=== PATIENT | male | born 1970 | race African-American/Black ===

== ENCOUNTER 2020-12-09 11:40 | Inpatient (IN) | payer SELFPAY ==
[~2020-12-09] VITALS: Ht 193 cm; Wt 141.8 kg
[2020-12-09] MEDS ORDERED: FUROSEMIDE 40 MG/4 ML VIAL IV ONE ×2 (12:00→16:15)
[2020-12-09 12:40] LABS: Basophils # (auto) 0.1 10 ^3/uL (0-0.2); Eosinophils # (auto) 0.1 10 ^3/uL (0-0.8); Eosinophils % (auto) 1.9 % (0.0-7.0); Hematocrit 30.8 % (41.0-53.0); Hemoglobin 10.3 g/dL (13.5-17.5); Lymphocytes % (auto) 25.6 % (10.0-50.0); Mean Corpuscular Hemoglobin 31.3 pg (28.0-32.0); Mean Corpuscular Hgb Conc. 33.5 g/dL (32.0-36.0); Mean Corpuscular Volume 93.5 fL (80.0-100.0); Monocytes # (auto) 0.8 10 ^3/uL (0-1.3); Monocytes % (auto) 10.7 % (0.0-12.0); Neutrophils # (auto) 4.6 10 ^3/uL (1.6-8.6); Neutrophils % (auto) 60.8 % (37.0-80.0); Nucleated Red Blood Cells % 0.1 %; Platelet Count (auto) 364 10^3/uL (140-450); Red Blood Cells 3.29 10^6/uL (4.5-5.90); Red Cell Distribution Width 13.4 % (11.8-14.3); White Blood Cell 7.6 10^3/uL (4.4-10.8)
[2020-12-09 12:58] LABS: Albumin 2.4 g/dL (3.4-5.0); Anion Gap 9 (5-15); Blood Urea Nitrogen 4 mg/dL (7-18); Calcium 8.4 mg/dL (8.5-10.1); Carbon Dioxide 23 mmol/L (21-32); Chloride 105 mmol/L (98-107); Glucose 110 mg/dL (74-106); Potassium 3.6 mmol/L (3.5-5.1); Sodium 137 mmol/L (136-145)
[2020-12-09 13:05] LABS: Alanine Aminotransferase 22 U/L (16-61); Alkaline Phosphatase 165 U/L (45-117); Aspartate Aminotransferase 48 U/L (15-37); BUN/Creatinine Ratio 6.6; Bilirubin, Total 2.7 mg/dL (0.2-1.0); GFR African American 181 mL/min; GFR Non-African American 149 mL/min
[2020-12-09 13:33] LABS: Urine Bacteria NONE SEEN /hpf (None Seen); Urine Blood Negative /uL (Negative); Urine Specific Gravity 1.011 (1.001-1.035); Urine WBC 1 /hpf (0 - 3)
[2020-12-09] MEDS ORDERED: IOHEXOL 350 MG/ML 100ML IJ ONE ×2 (13:43→14:37)
[2020-12-09] MEDS ORDERED: ALBUTEROL SULF 2.5 MG/0.5ML(0.5%) NEB SOLN NEB PRN (16:15)
[2020-12-09] MEDS ORDERED: ONDANSETRON HCL 4 MG/2 ML VIAL IV PRN (16:15)
[2020-12-09] MEDS ORDERED: DOCUSATE CALCIUM 240 MG CAP PO PRN (16:15)
[2020-12-09] MEDS ORDERED: NITROGLYCERIN 0.4 MG SL TAB SL PRN (16:15)
[2020-12-09] MEDS ORDERED: LORazepam 0.5 MG TAB PO PRN (16:15)
[2020-12-09] MEDS ORDERED: ACETAMINOPHEN 325 MG TAB PO PRN (16:15)
[2020-12-09] MEDS ORDERED: MORPHINE SULF INJ 2 MG/ML SYRINGE 1ML IV PRN ×2 (16:15)
[2020-12-09] MEDS ORDERED: LABETALOL HCL 5 MG/ML 4ML SYRINGE IV PRN (16:15)
[2020-12-09 19:36] VITALS: BP 138/77
[2020-12-09 21:00] VITALS: BP 123/72
[2020-12-09 22:00] VITALS: BP 123/72
[2020-12-10 05:00] VITALS: BP 127/79
[2020-12-10 06:48] LABS: Potassium 3.8 mmol/L (3.5-5.1)
[2020-12-10 07:12] LABS: Albumin 2.2 g/dL (3.4-5.0); BUN/Creatinine Ratio 9.7; Bilirubin, Total 2.1 mg/dL (0.2-1.0); Calcium 8.3 mg/dL (8.5-10.1); Total Protein 8.3 g/dL (6.4-8.2)
[2020-12-10 07:17] LABS: INR 1.46 (0.9-1.15)
[2020-12-10 09:00] VITALS: BP 139/84
[2020-12-10] MEDS: POTASSIUM CHL 20 Meq TABLET PO SCH (09:32)
[2020-12-10] MEDS: ENOXAPARIN SOD 40 MG/0.4 ML SYRINGE SC SCH (09:33)
[2020-12-10] MEDS: PANTOPRAZOLE 40 MG TAB PO SCH (09:33)
[2020-12-10 09:55] LABS: Basophils # (auto) 0.1 10 ^3/uL (0-0.2); Basophils % (auto) 0.8 % (0.0-2.0); Eosinophils # (auto) 0.1 10 ^3/uL (0-0.8); Eosinophils % (auto) 0.8 % (0.0-7.0); Hematocrit 46.3 % (41.0-53.0); Hemoglobin 15.6 g/dL (13.5-17.5); Lymphocytes # (auto) 1.7 10 ^3/uL (0.4-5.4); Lymphocytes % (auto) 20.4 % (10.0-50.0); Mean Corpuscular Hemoglobin 30.1 pg (28.0-32.0); Mean Corpuscular Hgb Conc. 33.7 g/dL (32.0-36.0); Mean Corpuscular Volume 89.5 fL (80.0-100.0); Monocytes # (auto) 0.3 10 ^3/uL (0-1.3); Monocytes % (auto) 3.3 % (0.0-12.0); Neutrophils # (auto) 6.1 10 ^3/uL (1.6-8.6); Neutrophils % (auto) 74.7 % (37.0-80.0); Nucleated Red Blood Cells % 0.1 %; Platelet Count (auto) 298 10^3/uL (140-450); Red Blood Cells 5.17 10^6/uL (4.5-5.90); Red Cell Distribution Width 13.5 % (11.8-14.3); White Blood Cell 8.1 10^3/uL (4.4-10.8)
[2020-12-10 13:00] VITALS: BP 137/74
[2020-12-10 17:00] VITALS: BP 143/76
[2020-12-10] MEDS: SPIRONOLACTONE 25 MG TAB PO SCH (18:08)
[2020-12-10] MEDS: FUROSEMIDE 20 MG TAB PO SCH (18:09)
[2020-12-10] MEDS: Glucerna Carbsteady SHAKE Vanilla 8oz PO SCH (18:40)
[2020-12-10] MEDS: LACTULOSE 20Gm/30ML SOLN PO SCH (22:03)
[2020-12-10 22:18] VITALS: BP 120/76
[2020-12-11 05:17] VITALS: BP 133/71
[2020-12-11 05:40] LABS: Basophils # (auto) 0.1 10 ^3/uL (0-0.2); Basophils % (auto) 0.7 % (0.0-2.0); Eosinophils # (auto) 0.2 10 ^3/uL (0-0.8); Eosinophils % (auto) 2.2 % (0.0-7.0); Hematocrit 29.5 % (41.0-53.0); Lymphocytes # (auto) 2.5 10 ^3/uL (0.4-5.4); Lymphocytes % (auto) 31.2 % (10.0-50.0); Mean Corpuscular Hemoglobin 31.7 pg (28.0-32.0); Mean Corpuscular Hgb Conc. 33.9 g/dL (32.0-36.0); Mean Corpuscular Volume 93.4 fL (80.0-100.0); Monocytes # (auto) 0.8 10 ^3/uL (0-1.3); Monocytes % (auto) 10.3 % (0.0-12.0); Neutrophils # (auto) 4.5 10 ^3/uL (1.6-8.6); Neutrophils % (auto) 55.6 % (37.0-80.0); Nucleated Red Blood Cells % 0.2 %; Platelet Count (auto) 336 10^3/uL (140-450); Red Blood Cells 3.16 10^6/uL (4.5-5.90); Red Cell Distribution Width 13.7 % (11.8-14.3)
[2020-12-11 06:02] LABS: Albumin 2.1 g/dL (3.4-5.0); Calcium 7.9 mg/dL (8.5-10.1); Potassium 4.2 mmol/L (3.5-5.1)
[2020-12-11 06:07] LABS: BUN/Creatinine Ratio 8.5; Bilirubin, Total 2.1 mg/dL (0.2-1.0)
[2020-12-11] MEDS: SPIRONOLACTONE 25 MG TAB PO SCH (06:13)
[2020-12-11] MEDS: FUROSEMIDE 20 MG TAB PO SCH (06:13)
[2020-12-11] MEDS: Glucerna Carbsteady SHAKE Vanilla 8oz PO SCH ×2 (08:23→12:00)
[2020-12-11 09:00] VITALS: BP 127/62
[2020-12-11] MEDS ORDERED: PHYTONADIONE(VitK) ORAL Susp 10mg/10ml(1mg/ml) PO SCH (10:00)
[2020-12-11] MEDS: LACTULOSE 20Gm/30ML SOLN PO SCH (10:10)
[2020-12-11] MEDS: POTASSIUM CHL 20 Meq TABLET PO SCH (10:11)
[2020-12-11] MEDS: PANTOPRAZOLE 40 MG TAB PO SCH (10:11)
[2020-12-11] MEDS: ENOXAPARIN SOD 40 MG/0.4 ML SYRINGE SC SCH (10:13)
[2020-12-11 11:39] LABS: INR 1.36 (0.9-1.15); Partial Thromboplastin Time 34.2 sec (23.0-31.2)
[2020-12-11] MEDS ORDERED: FOLIC ACID 1 MG, MULTIPLE VITAMIN 10 ML, MAGNESIUM SULF SDV 50% 8 MEQ, THIAMINE INJ 100... INJ SCH ×5 (12:00)
[2020-12-11 12:26] VITALS: BP 130/70
[2020-12-11 13:00] VITALS: BP 130/70
[2020-12-11 17:00] VITALS: BP 124/70
[2020-12-12 10:58] LABS: Hepatitis B Surface Antibody Negative
[2020-12-12 11:34] LABS: Hepatitis A Total Antibody Negative
[2020-12-12 12:11] LABS: Hepatitis B Core Total AB Positive; Hepatitis B Surface Antigen Negative (Negative); Hepatitis C Antibody Negative (Negative)
== END 2020-12-11 15:15 | disposition home or self-care (01) | DRG 433 ==
LOC: ER 11:40 → TELE 16:09 → TELE-EAST 21:00
PROVIDERS: ADMIT Family Medicine; ATTEND Family Medicine
DX: K74.60 Unspecified cirrhosis of liver (principal); D68.9 Coagulation defect, unspecified; E44.0 Moderate protein-calorie malnutrition; F10.231 Alcohol dependence with withdrawal delirium; J98.11 Atelectasis; K76.6 Portal hypertension; R18.8 Other ascites; I85.10 Secondary esophageal varices without bleeding; D63.8 Anemia in other chronic diseases classified elsewhere; E11.9 Type 2 diabetes mellitus without complications; I86.4 Gastric varices; R16.2 Hepatomegaly with splenomegaly, not elsewhere classified; F17.210 Nicotine dependence, cigarettes, uncomplicated; L02.828 Furuncle of other sites; I10 Essential (primary) hypertension; Z79.899 Other long term (current) drug therapy; Z83.3 Family history of diabetes mellitus; Z68.38 Body mass index [BMI] 38.0-38.9, adult; Z20.822 Contact with and (suspected) exposure to COVID-19
CPT/HCPCS: 36415; 71045; 71275; 76700; 80053; 81001; 82105; 82140; 82728; 83036; 83735; 83880; 84443; 84484; 85025; 85610; 85730; 86038; 86141; 86704; 86706; 86708; 86803; 87340; 87426; 93005; 96374; 96376; G0378

== ENCOUNTER 2022-03-09 15:18 | Inpatient (IN) | payer MEDICAID ==
[~2022-03-09] VITALS: Ht 193 cm; Wt 141.5 kg
[2022-03-09 16:17] LABS: Calcium 8.2 mg/dL (8.5-10.1); Potassium 4.5 mmol/L (3.5-5.1)
[2022-03-09 16:19] LABS: BUN/Creatinine Ratio 13.6
[2022-03-09 16:22] LABS: Bilirubin, Total 7.1 mg/dL (0.2-1.0); Total Protein 8.3 g/dL (6.4-8.2)
[2022-03-09 16:44] LABS: INR 1.83 (0.9-1.15); Partial Thromboplastin Time 35.3 sec (24.6-33.4)
[2022-03-09 18:58] LABS: Basophils # (auto) 0.1 10 ^3/uL (0-0.2); Basophils % (auto) 0.9 % (0.0-2.0); Eosinophils # (auto) 0.1 10 ^3/uL (0-0.8); Hematocrit 23.1 % (41.0-53.0); Lymphocytes # (auto) 1.4 10 ^3/uL (0.4-5.4); Lymphocytes % (auto) 19.3 % (10.0-50.0); Mean Corpuscular Hemoglobin 33.3 pg (28.0-32.0); Monocytes # (auto) 1.1 10 ^3/uL (0-1.3); Monocytes % (auto) 14.3 % (0.0-12.0); Neutrophils # (auto) 4.8 10 ^3/uL (1.6-8.6); Neutrophils % (auto) 64.5 % (37.0-80.0); Nucleated Red Blood Cells % 0.1 %; Red Blood Cells 2.28 10^6/uL (4.5-5.90); Red Cell Distribution Width 18.4 % (11.8-14.3); White Blood Cell 7.4 10^3/uL (4.4-10.8)
[2022-03-09 18:59] LABS: Hemoglobin 7.6 g/dL (13.5-17.5)
[2022-03-09] MEDS ORDERED: MORPHINE SULFATE INJ 2 MG/ml SYRG IV PRN (19:30)
[2022-03-09] MEDS ORDERED: NITROGLYCERIN 0.4 MG SL TAB SL PRN (19:30)
[2022-03-09] MEDS ORDERED: ONDANSETRON HCL 4 MG/2 ML VIAL IV PRN (19:30)
[2022-03-09] MEDS ORDERED: DEXTROSE (50%) 50ML SYRG IV PRN (19:45)
[2022-03-09] MEDS ORDERED: OCTREOTIDE ACETATE 100 MCG in SODIUM CHL 0.9% 50 ML IV ONE (19:45)
[2022-03-09] MEDS ORDERED: cefTRIAXone 1GM/50ML D5W 50 ML IV ONE (19:45)
[2022-03-09] MEDS ORDERED: PANTOPRAZOLE 40 MG/10 ML VIAL INJ IV ONE (19:45)
[2022-03-09] MEDS: OCTREOTIDE ACETATE 500 MCG in SODIUM CHL 0.9% 99 ML IV SCH (21:35)
[2022-03-09] MEDS: metroNIDAZOLE 500MG/100ML 100 ML IV SCH (22:25)
[2022-03-09] MEDS: PANTOPRAZOLE 40 MG/10 ML VIAL INJ IV SCH (22:25)
[2022-03-10] VITALS (12 sets, daily range): BP systolic 92–158; BP diastolic 39–67
[2022-03-10] MEDS: ACCU-CHEK COMFORT CURVE STRIP VI SCH ×4 (00:39→17:19)
[2022-03-10 00:43] LABS: Hematocrit 21.1 % (41.0-53.0); Hemoglobin 7.1 g/dL (13.5-17.5)
[2022-03-10 05:21] LABS: Basophils # (auto) 0.1 10 ^3/uL (0-0.2); Basophils % (auto) 0.7 % (0.0-2.0); Eosinophils # (auto) 0.1 10 ^3/uL (0-0.8); Red Blood Cells 1.96 10^6/uL (4.5-5.90)
[2022-03-10 05:28] LABS: Hematocrit 19.8 % (41.0-53.0); Lymphocytes # (auto) 1.1 10 ^3/uL (0.4-5.4); Lymphocytes % (auto) 15.2 % (10.0-50.0); Mean Corpuscular Hemoglobin 34.4 pg (28.0-32.0); Mean Corpuscular Hgb Conc. 34.1 g/dL (32.0-36.0); Mean Corpuscular Volume 100.9 fL (80.0-100.0); Monocytes % (auto) 13.5 % (0.0-12.0); Neutrophils # (auto) 5.2 10 ^3/uL (1.6-8.6); Neutrophils % (auto) 69.6 % (37.0-80.0); Nucleated Red Blood Cells % 0.1 %; Red Cell Distribution Width 18.5 % (11.8-14.3); White Blood Cell 7.5 10^3/uL (4.4-10.8)
[2022-03-10 05:35] LABS: Potassium 4.7 mmol/L (3.5-5.1)
[2022-03-10 05:38] LABS: BUN/Creatinine Ratio 14.3; Hemoglobin 6.7 g/dL (13.5-17.5)
[2022-03-10 05:41] LABS: Total Protein 7.8 g/dL (6.4-8.2)
[2022-03-10] MEDS: InsuLIN REG 1unit/0.01ml Soln (100units/ml) SC SCH ×4 (06:00→18:00)
[2022-03-10] MEDS: metroNIDAZOLE 500MG/100ML 100 ML IV SCH (06:05)
[2022-03-10] MEDS: OCTREOTIDE ACETATE 500 MCG in SODIUM CHL 0.9% 99 ML IV SCH ×2 (06:05→16:36)
[2022-03-10] MEDS: cefTRIAXone 1GM/50ML D5W 50 ML IV SCH (09:23)
[2022-03-10] MEDS: PANTOPRAZOLE 40 MG/10 ML VIAL INJ IV SCH ×2 (09:23→21:39)
[2022-03-10] MEDS: NICOTINE 14 MG/24HR TOPICAL PATCH TD SCH (09:23)
[2022-03-10] MEDS ORDERED: METOCLOPRAMIDE HCL 5MG/ml INJ 2ml VIAL IV PRN (11:45)
[2022-03-10 12:18] LABS: Hematocrit 22.4 % (41.0-53.0); Hemoglobin 7.6 g/dL (13.5-17.5)
[2022-03-10] MEDS ORDERED: phytonadione 10 MG in SODIUM CHL 0.9% 50 ML IV ONE (13:00)
[2022-03-10] MEDS: ALBUMIN 25% 50 ML IV SCH ×2 (13:35→21:38)
[2022-03-10] MEDS: BUMETANIDE 2.5mg/10ml (0.25 mg/ml) INJ IV SCH (17:54)
[2022-03-10 18:46] LABS: Hemoglobin 7.3 g/dL (13.5-17.5)
[2022-03-10 18:48] LABS: Hematocrit 21.6 % (41.0-53.0)
[2022-03-11] VITALS (18 sets, daily range): BP systolic 88–107; BP diastolic 41–65
[2022-03-11] MEDS: ACCU-CHEK COMFORT CURVE STRIP VI SCH ×4 (03:45→18:10)
[2022-03-11] MEDS: OCTREOTIDE ACETATE 500 MCG in SODIUM CHL 0.9% 99 ML IV SCH ×3 (03:45→21:16)
[2022-03-11] MEDS: ALBUMIN 25% 50 ML IV SCH (03:52)
[2022-03-11 04:57] LABS: Basophils # (auto) 0.1 10 ^3/uL (0-0.2); Eosinophils # (auto) 0.2 10 ^3/uL (0-0.8); Neutrophils % (auto) 64.5 % (37.0-80.0); Nucleated Red Blood Cells % 0.1 %
[2022-03-11 05:01] LABS: Eosinophils % (auto) 3.1 % (0.0-7.0); Hematocrit 19.7 % (41.0-53.0); Lymphocytes # (auto) 1.1 10 ^3/uL (0.4-5.4); Lymphocytes % (auto) 16.7 % (10.0-50.0); Mean Corpuscular Hemoglobin 34.1 pg (28.0-32.0); Mean Corpuscular Hgb Conc. 34.5 g/dL (32.0-36.0); Monocytes % (auto) 14.7 % (0.0-12.0); Neutrophils # (auto) 4.4 10 ^3/uL (1.6-8.6); Red Blood Cells 1.99 10^6/uL (4.5-5.90); Red Cell Distribution Width 18.1 % (11.8-14.3); White Blood Cell 6.9 10^3/uL (4.4-10.8)
[2022-03-11 05:05] LABS: Hemoglobin 6.8 g/dL (13.5-17.5)
[2022-03-11 05:11] LABS: INR 1.59 (0.9-1.15)
[2022-03-11 05:13] LABS: Potassium 4.5 mmol/L (3.5-5.1)
[2022-03-11 05:18] LABS: Albumin 2.4 g/dL (3.4-5.0); BUN/Creatinine Ratio 11.5; Calcium 8.2 mg/dL (8.5-10.1)
[2022-03-11 05:20] LABS: Bilirubin, Total 8.4 mg/dL (0.2-1.0); Total Protein 8.1 g/dL (6.4-8.2)
[2022-03-11] MEDS: InsuLIN REG 1unit/0.01ml Soln (100units/ml) SC SCH ×4 (06:00→18:00)
[2022-03-11] MEDS: BUMETANIDE 2.5mg/10ml (0.25 mg/ml) INJ IV SCH ×2 (06:08→18:16)
[2022-03-11] MEDS: cefTRIAXone 1GM/50ML D5W 50 ML IV SCH (08:30)
[2022-03-11] MEDS: NICOTINE 14 MG/24HR TOPICAL PATCH TD SCH (10:00)
[2022-03-11 11:14] LABS: Magnesium 2.1 mg/dL (1.6-2.6)
[2022-03-11] MEDS: PANTOPRAZOLE 40 MG/10 ML VIAL INJ IV SCH ×2 (12:06→22:12)
[2022-03-11] MEDS: MIDODRINE HCL 10 MG TAB PO SCH ×2 (12:06→18:16)
[2022-03-11] MEDS: DOPamine 1600MCG/ML D5W 250 ML IV SCH (13:23)
[2022-03-11] MEDS: SILDENAFIL CITRATE 20 MG TAB PO SCH ×2 (13:29→21:16)
[2022-03-12] MEDS: ACCU-CHEK COMFORT CURVE STRIP VI SCH ×4 (00:26→17:41)
[2022-03-12 04:55] LABS: Basophils # (auto) 0 10 ^3/uL (0-0.2); Basophils % (auto) 0.5 % (0.0-2.0); Eosinophils # (auto) 0.1 10 ^3/uL (0-0.8); Eosinophils % (auto) 1.3 % (0.0-7.0); Hematocrit 21.2 % (41.0-53.0); Hemoglobin 7.3 g/dL (13.5-17.5); Lymphocytes # (auto) 0.8 10 ^3/uL (0.4-5.4); Lymphocytes % (auto) 11.8 % (10.0-50.0); Mean Corpuscular Hemoglobin 33.6 pg (28.0-32.0); Mean Corpuscular Hgb Conc. 34.3 g/dL (32.0-36.0); Mean Corpuscular Volume 97.9 fL (80.0-100.0); Monocytes # (auto) 1.1 10 ^3/uL (0-1.3); Monocytes % (auto) 15.8 % (0.0-12.0); Neutrophils % (auto) 70.6 % (37.0-80.0); Nucleated Red Blood Cells % 0.2 %; Red Blood Cells 2.17 10^6/uL (4.5-5.90); Red Cell Distribution Width 19.9 % (11.8-14.3); White Blood Cell 7.1 10^3/uL (4.4-10.8)
[2022-03-12 05:00] VITALS: BP 89/39
[2022-03-12 05:14] LABS: BUN/Creatinine Ratio 9.2; Potassium 4.9 mmol/L (3.5-5.1)
[2022-03-12] MEDS: InsuLIN REG 1unit/0.01ml Soln (100units/ml) SC SCH ×4 (06:00→17:41)
[2022-03-12] MEDS: MIDODRINE HCL 10 MG TAB PO SCH ×3 (06:15→17:42)
[2022-03-12] MEDS: BUMETANIDE 2.5mg/10ml (0.25 mg/ml) INJ IV SCH ×2 (06:15→12:42)
[2022-03-12] MEDS: OCTREOTIDE ACETATE 500 MCG in SODIUM CHL 0.9% 99 ML IV SCH (07:45)
[2022-03-12] MEDS: DOPamine 1600MCG/ML D5W 250 ML IV SCH (08:07)
[2022-03-12] MEDS: SILDENAFIL CITRATE 20 MG TAB PO SCH ×3 (08:08→20:30)
[2022-03-12] MEDS: cefTRIAXone 1GM/50ML D5W 50 ML IV SCH (08:08)
[2022-03-12 08:20] VITALS: BP 93/43
[2022-03-12] MEDS: NICOTINE 14 MG/24HR TOPICAL PATCH TD SCH (11:04)
[2022-03-12] MEDS: PANTOPRAZOLE 40 MG/10 ML VIAL INJ IV SCH ×2 (11:04→21:09)
[2022-03-12 11:07] VITALS: BP 105/52
[2022-03-12 11:52] LABS: Amphetamine Screen, Urine NEGATIVE (NEGATIVE); Barbiturate Scree,Urine NEGATIVE (NEGATIVE); Benzodiazephine Screen, Urine NEGATIVE (NEGATIVE); Cocaine Screen, Urine NEGATIVE (NEGATIVE); Opiate Scree,Urine NEGATIVE (NEGATIVE)
[2022-03-12 12:00] LABS: Cannabinoid Screen, Urine POSITIVE (NEGATIVE); Phencyclidine Screen, Urine NEGATIVE (NEGATIVE)
[2022-03-12 12:01] LABS: Hepatitis C Antibody Negative (Negative)
[2022-03-12 12:15] LABS: Sodium Urine < 5 mmol/L (40-220)
[2022-03-12 12:28] LABS: Creatinine, Urine 534 mg/dL (30.0-125.0); Protein, Urine 247.4 mg/dL (0.0-11.9)
[2022-03-12 12:31] LABS: Urine Bacteria NONE SEEN /hpf (None Seen); Urine Blood 3+ /uL (Negative); Urine Hyaline Cast MANY /lpf (0 - 2); Urine Mucus FEW (None Seen); Urine Specific Gravity 1.026 (1.001-1.035); Urine WBC 95 /hpf (0 - 3)
[2022-03-12] MEDS: ALBUMIN 25% 100 ML IV SCH ×2 (12:42→20:30)
[2022-03-12 17:00] VITALS: BP 95/42
[2022-03-12] MEDS: SUCRALFATE 1 GM/10 ML ORAL SUSP GT SCH (17:42)
[2022-03-12 22:00] VITALS: BP 83/54
[2022-03-12 23:02] VITALS: BP 160/61
[2022-03-13] VITALS (10 sets, daily range): BP systolic 88–105; BP diastolic 51–66
[2022-03-13] MEDS: ACCU-CHEK COMFORT CURVE STRIP VI SCH ×5 (00:55→23:39)
[2022-03-13] MEDS: InsuLIN REG 1unit/0.01ml Soln (100units/ml) SC SCH ×5 (00:55→23:40)
[2022-03-13] MEDS: ALBUMIN 25% 100 ML IV SCH (04:46)
[2022-03-13 05:23] LABS: Basophils # (auto) 0 10 ^3/uL (0-0.2); Eosinophils # (auto) 0 10 ^3/uL (0-0.8); Eosinophils % (auto) 0.1 % (0.0-7.0); Lymphocytes # (auto) 0.3 10 ^3/uL (0.4-5.4); Monocytes # (auto) 0.3 10 ^3/uL (0-1.3); White Blood Cell 5.7 10^3/uL (4.4-10.8)
[2022-03-13 05:28] LABS: Basophils % (auto) 0.4 % (0.0-2.0); Hematocrit 20.3 % (41.0-53.0); Hemoglobin 7.1 g/dL (13.5-17.5); Lymphocytes % (auto) 6.1 % (10.0-50.0); Mean Corpuscular Hemoglobin 34.3 pg (28.0-32.0); Mean Corpuscular Hgb Conc. 34.7 g/dL (32.0-36.0); Mean Corpuscular Volume 98.8 fL (80.0-100.0); Monocytes % (auto) 5.8 % (0.0-12.0); Neutrophils % (auto) 87.6 % (37.0-80.0); Nucleated Red Blood Cells % 0.2 %; Red Blood Cells 2.06 10^6/uL (4.5-5.90); Red Cell Distribution Width 19.6 % (11.8-14.3)
[2022-03-13 05:42] LABS: Calcium 8.3 mg/dL (8.5-10.1); Potassium 5.4 mmol/L (3.5-5.1)
[2022-03-13] MEDS: DOPamine 1600MCG/ML D5W 250 ML IV SCH ×2 (05:42→12:00)
[2022-03-13 05:45] LABS: BUN/Creatinine Ratio 9.1
[2022-03-13] MEDS: MIDODRINE HCL 10 MG TAB PO SCH ×3 (06:13→17:32)
[2022-03-13] MEDS: SUCRALFATE 1 GM/10 ML ORAL SUSP GT SCH ×3 (06:14→17:31)
[2022-03-13] MEDS: SILDENAFIL CITRATE 20 MG TAB PO SCH ×3 (08:00→19:43)
[2022-03-13] MEDS: cefTRIAXone 1GM/50ML D5W 50 ML IV SCH (11:00)
[2022-03-13] MEDS: NICOTINE 14 MG/24HR TOPICAL PATCH TD SCH (11:00)
[2022-03-13] MEDS: PANTOPRAZOLE 40 MG/10 ML VIAL INJ IV SCH ×2 (11:00→22:10)
[2022-03-13] MEDS: BUMETANIDE 2.5mg/10ml (0.25 mg/ml) INJ IV SCH (11:00)
[2022-03-13] MEDS: SODIUM ZIRCONIUM CYCL 10 GM PAK PO SCH ×2 (14:15→22:10)
[2022-03-13] MEDS: SODIUM FERR GLUC 62.5MG/5ML 125 MG in SODIUM CHL 0.9% 100 ML IV SCH (17:29)
[2022-03-14] VITALS (9 sets, daily range): BP systolic 87–109; BP diastolic 37–68
[2022-03-14] MEDS: DOPamine 1600MCG/ML D5W 250 ML IV SCH ×2 (03:56→17:43)
[2022-03-14] MEDS: SODIUM ZIRCONIUM CYCL 10 GM PAK PO SCH ×3 (05:01→21:14)
[2022-03-14] MEDS: ACCU-CHEK COMFORT CURVE STRIP VI SCH ×4 (05:02→21:15)
[2022-03-14] MEDS: InsuLIN REG 1unit/0.01ml Soln (100units/ml) SC SCH ×4 (05:02→21:14)
[2022-03-14] MEDS: MIDODRINE HCL 10 MG TAB PO SCH ×3 (06:35→17:40)
[2022-03-14] MEDS: SUCRALFATE 1 GM/10 ML ORAL SUSP GT SCH ×3 (06:35→17:40)
[2022-03-14 08:37] LABS: Albumin 2.9 g/dL (3.4-5.0); Potassium 5.5 mmol/L (3.5-5.1)
[2022-03-14 08:40] LABS: BUN/Creatinine Ratio 8.7; Total Protein 8.7 g/dL (6.4-8.2)
[2022-03-14] MEDS: BUMETANIDE 2.5mg/10ml (0.25 mg/ml) INJ IV SCH (09:35)
[2022-03-14] MEDS: PANTOPRAZOLE 40 MG/10 ML VIAL INJ IV SCH ×2 (09:48→21:14)
[2022-03-14] MEDS: cefTRIAXone 1GM/50ML D5W 50 ML IV SCH (09:48)
[2022-03-14] MEDS: NICOTINE 14 MG/24HR TOPICAL PATCH TD SCH (09:48)
[2022-03-14] MEDS: SILDENAFIL CITRATE 20 MG TAB PO SCH ×3 (09:52→21:14)
[2022-03-14] MEDS ORDERED: diphenhdrAMINE HCL 50 MG/1 ML VL ONE (12:33)
[2022-03-14] MEDS ORDERED: LIDOCAINE VISCOUS 2% 15ML UD ONE (12:33)
[2022-03-14] MEDS ORDERED: MIDAZOLAM HCL 5 MG/ML-1ML VIAL ONE (12:33)
[2022-03-14] MEDS ORDERED: SODIUM CHLORIDE LOCK 10 ML ONE (12:33)
[2022-03-14] MEDS ORDERED: fentaNYL CITRATE 100 MCG/2 ML VL ONE (12:34)
[2022-03-14] MEDS: SODIUM FERR GLUC 62.5MG/5ML 125 MG in SODIUM CHL 0.9% 100 ML IV SCH (14:05)
[2022-03-14 17:24] LABS: INR 1.6 (0.9-1.15); Partial Thromboplastin Time 45.5 sec (24.6-33.4)
[2022-03-15 05:14] VITALS: BP 99/51
[2022-03-15] MEDS: SODIUM ZIRCONIUM CYCL 10 GM PAK PO SCH (05:54)
[2022-03-15] MEDS: MIDODRINE HCL 10 MG TAB PO SCH ×3 (05:55→18:30)
[2022-03-15] MEDS: SUCRALFATE 1 GM/10 ML ORAL SUSP GT SCH ×3 (05:55→18:30)
[2022-03-15] MEDS: InsuLIN REG 1unit/0.01ml Soln (100units/ml) SC SCH ×4 (05:55→23:53)
[2022-03-15] MEDS: ACCU-CHEK COMFORT CURVE STRIP VI SCH ×4 (05:55→23:52)
[2022-03-15] MEDS ORDERED: SODIUM CHL 0.9% 1000 ML BAG XX ONE (07:00)
[2022-03-15 07:05] LABS: Hemoglobin 7.5 g/dL (13.5-17.5)
[2022-03-15 07:20] LABS: Hematocrit 21.9 % (41.0-53.0); Red Blood Cells 2.24 10^6/uL (4.5-5.90); White Blood Cell 8.2 10^3/uL (4.4-10.8)
[2022-03-15 07:21] LABS: Mean Corpuscular Hemoglobin 33.5 pg (28.0-32.0); Mean Corpuscular Hgb Conc. 34.3 g/dL (32.0-36.0); Mean Corpuscular Volume 97.8 fL (80.0-100.0)
[2022-03-15 07:22] LABS: Basophils % (manual) 0 (0.0-2.0); Blast Cells 0; Eosinophils % (manual) 0 (0-7); INR 1.64 (0.9-1.15); Metamyelocytes % 0; Myelocytes % 0; Partial Thromboplastin Time 42.4 sec (24.6-33.4); Promyelocytes % 0; Reactive Lymphocytes 0
[2022-03-15 07:24] LABS: Calcium 7.8 mg/dL (8.5-10.1); Potassium 5.3 mmol/L (3.5-5.1)
[2022-03-15 07:26] LABS: BUN/Creatinine Ratio 9.3
[2022-03-15 07:32] LABS: Band Neutrophils % (manual) 1; Lymphocytes % (manual) 6 (10.0-50.0); Monocytes % (manual) 23 (0-12)
[2022-03-15] MEDS: DOPamine 1600MCG/ML D5W 250 ML IV SCH ×2 (07:59→19:11)
[2022-03-15 08:00] VITALS: BP 91/37
[2022-03-15] MEDS: cefTRIAXone 1GM/50ML D5W 50 ML IV SCH (08:44)
[2022-03-15] MEDS: SILDENAFIL CITRATE 20 MG TAB PO SCH ×3 (08:44→21:14)
[2022-03-15 09:07] VITALS: BP 91/37
[2022-03-15] MEDS: NICOTINE 14 MG/24HR TOPICAL PATCH TD SCH (10:00)
[2022-03-15] MEDS: PANTOPRAZOLE 40 MG/10 ML VIAL INJ IV SCH ×2 (10:18→21:18)
[2022-03-15] MEDS: BUMETANIDE 2.5mg/10ml (0.25 mg/ml) INJ IV SCH (10:18)
[2022-03-15] MEDS ORDERED: LIDOCAINE 2%HCL (LOCAL ANESTH.) INJ 10ml MDV ONE (11:46)
[2022-03-15] MEDS ORDERED: fentaNYL CITRATE 100 MCG/2 ML VL ONE (11:55)
[2022-03-15] MEDS ORDERED: HEPARIN SODIUM (PORCINE) 5000 UNITS/ML 1ML VIAL ONE (12:04)
[2022-03-15] MEDS: SODIUM FERR GLUC 62.5MG/5ML 125 MG in SODIUM CHL 0.9% 100 ML IV SCH (13:57)
[2022-03-15] MEDS ORDERED: ALBUMIN 25% 100 ML IV PRN (15:30)
[2022-03-15] MEDS ORDERED: DOPamine 1600MCG/ML D5W 250 ML IV SCH (15:45)
[2022-03-15 16:48] VITALS: BP 115/64
[2022-03-15 20:00] VITALS: BP 101/49
[2022-03-15] MEDS ORDERED: EPOETIN ALFA-EPBX 10,000 UNIT/1ML VIAL SC ONE (21:00)
[2022-03-15 22:00] VITALS: BP 59/33
[2022-03-16] VITALS (8 sets, daily range): BP systolic 74–114; BP diastolic 41–69
[2022-03-16] MEDS: ACCU-CHEK COMFORT CURVE STRIP VI SCH ×4 (05:58→23:55)
[2022-03-16] MEDS: InsuLIN REG 1unit/0.01ml Soln (100units/ml) SC SCH ×4 (05:59→23:57)
[2022-03-16] MEDS: MIDODRINE HCL 10 MG TAB PO SCH ×3 (06:03→17:48)
[2022-03-16] MEDS: SUCRALFATE 1 GM/10 ML ORAL SUSP GT SCH ×3 (06:07→17:48)
[2022-03-16 06:13] LABS: Calcium 8.1 mg/dL (8.5-10.1); Potassium 4.3 mmol/L (3.5-5.1)
[2022-03-16 06:15] LABS: BUN/Creatinine Ratio 8.5
[2022-03-16] MEDS: PANTOPRAZOLE 40 MG/10 ML VIAL INJ IV SCH (08:59)
[2022-03-16] MEDS: SILDENAFIL CITRATE 20 MG TAB PO SCH (08:59)
[2022-03-16] MEDS: NICOTINE 14 MG/24HR TOPICAL PATCH TD SCH (08:59)
[2022-03-16] MEDS: DOPamine 1600MCG/ML D5W 250 ML IV SCH (09:03)
[2022-03-16] MEDS: SODIUM FERR GLUC 62.5MG/5ML 125 MG in SODIUM CHL 0.9% 100 ML IV SCH (13:07)
[2022-03-16] MEDS ORDERED: SODIUM CHLORIDE 0.9% 500 ML IV ONE (15:30)
[2022-03-16] MEDS: PANTOPRAZOLE 40 MG TAB PO SCH (21:21)
[2022-03-17] MEDS: DOPamine 1600MCG/ML D5W 250 ML IV SCH ×2 (00:38→17:30)
[2022-03-17 05:00] VITALS: BP 96/55
[2022-03-17] MEDS: MIDODRINE HCL 10 MG TAB PO SCH ×3 (05:54→18:42)
[2022-03-17] MEDS: ACCU-CHEK COMFORT CURVE STRIP VI SCH ×4 (05:54→23:16)
[2022-03-17] MEDS: InsuLIN REG 1unit/0.01ml Soln (100units/ml) SC SCH ×4 (05:55→23:17)
[2022-03-17] MEDS: SUCRALFATE 1 GM/10 ML ORAL SUSP GT SCH ×3 (06:36→18:42)
[2022-03-17 06:45] LABS: Basophils # (auto) 0 10 ^3/uL (0-0.2); Eosinophils # (auto) 0.2 10 ^3/uL (0-0.8); Hemoglobin 7.7 g/dL (13.5-17.5); Monocytes # (auto) 1.5 10 ^3/uL (0-1.3); Nucleated Red Blood Cells % 0.1 %
[2022-03-17 06:48] LABS: Basophils % (auto) 0.7 % (0.0-2.0); Eosinophils % (auto) 2.9 % (0.0-7.0); Hematocrit 22.1 % (41.0-53.0); Lymphocytes # (auto) 0.7 10 ^3/uL (0.4-5.4); Lymphocytes % (auto) 10.7 % (10.0-50.0); Mean Corpuscular Hemoglobin 33.8 pg (28.0-32.0); Mean Corpuscular Hgb Conc. 34.8 g/dL (32.0-36.0); Mean Corpuscular Volume 97.1 fL (80.0-100.0); Neutrophils % (auto) 62.5 % (37.0-80.0); Red Blood Cells 2.28 10^6/uL (4.5-5.90); Red Cell Distribution Width 19.7 % (11.8-14.3); White Blood Cell 6.4 10^3/uL (4.4-10.8)
[2022-03-17 06:54] LABS: Monocytes % (auto) 23.2 % (0.0-12.0)
[2022-03-17 07:01] LABS: BUN/Creatinine Ratio 8.1; Calcium 8.4 mg/dL (8.5-10.1); Potassium 4.3 mmol/L (3.5-5.1)
[2022-03-17 09:39] VITALS: BP 99/56
[2022-03-17] MEDS: NICOTINE 14 MG/24HR TOPICAL PATCH TD SCH (11:19)
[2022-03-17] MEDS: PANTOPRAZOLE 40 MG TAB PO SCH ×2 (11:21→21:46)
[2022-03-17 13:27] VITALS: BP 102/60
[2022-03-17 16:58] VITALS: BP 105/66
[2022-03-17 22:00] VITALS: BP 106/58
[2022-03-18 05:00] VITALS: BP 110/66
[2022-03-18] MEDS: DOPamine 1600MCG/ML D5W 250 ML IV SCH ×2 (06:13→23:39)
[2022-03-18] MEDS: ACCU-CHEK COMFORT CURVE STRIP VI SCH ×4 (06:14→23:40)
[2022-03-18] MEDS: MIDODRINE HCL 10 MG TAB PO SCH ×3 (06:14→18:17)
[2022-03-18] MEDS: SUCRALFATE 1 GM/10 ML ORAL SUSP GT SCH ×3 (06:15→18:17)
[2022-03-18] MEDS: InsuLIN REG 1unit/0.01ml Soln (100units/ml) SC SCH ×4 (06:16→23:41)
[2022-03-18 09:00] VITALS: BP 104/65
[2022-03-18] MEDS: NICOTINE 14 MG/24HR TOPICAL PATCH TD SCH (10:00)
[2022-03-18] MEDS: PANTOPRAZOLE 40 MG TAB PO SCH ×2 (10:15→21:23)
[2022-03-18 13:00] VITALS: BP 99/61
[2022-03-18 17:00] VITALS: BP 96/54
[2022-03-18 23:14] VITALS: BP 115/65
[2022-03-19] MEDS: InsuLIN REG 1unit/0.01ml Soln (100units/ml) SC SCH ×3 (06:00→18:00)
[2022-03-19] MEDS: MIDODRINE HCL 10 MG TAB PO SCH ×2 (06:08→18:24)
[2022-03-19] MEDS: ACCU-CHEK COMFORT CURVE STRIP VI SCH ×3 (06:08→18:25)
[2022-03-19] MEDS: SUCRALFATE 1 GM/10 ML ORAL SUSP GT SCH ×3 (06:09→18:24)
[2022-03-19 06:14] VITALS: BP 105/65
[2022-03-19 09:00] VITALS: BP 114/52
[2022-03-19 09:22] LABS: Hemoglobin 7.7 g/dL (13.5-17.5)
[2022-03-19 09:25] LABS: Hematocrit 22.3 % (41.0-53.0); Mean Corpuscular Hemoglobin 33.6 pg (28.0-32.0); Mean Corpuscular Hgb Conc. 34.3 g/dL (32.0-36.0); Red Blood Cells 2.28 10^6/uL (4.5-5.90); Red Cell Distribution Width 19.5 % (11.8-14.3); White Blood Cell 8.4 10^3/uL (4.4-10.8)
[2022-03-19] MEDS: NICOTINE 14 MG/24HR TOPICAL PATCH TD SCH (09:25)
[2022-03-19] MEDS: PANTOPRAZOLE 40 MG TAB PO SCH ×2 (09:25→21:42)
[2022-03-19 09:27] LABS: Basophils % (manual) 0 (0.0-2.0); Blast Cells 0; Eosinophils % (manual) 0 (0-7); Metamyelocytes % 0; Promyelocytes % 0; Reactive Lymphocytes 0
[2022-03-19 09:38] LABS: BUN/Creatinine Ratio 8.3; Calcium 8.4 mg/dL (8.5-10.1); Potassium 4.1 mmol/L (3.5-5.1)
[2022-03-19 11:45] LABS: Band Neutrophils % (manual) 1; Lymphocytes % (manual) 9 (10.0-50.0); Monocytes % (manual) 22 (0-12); Myelocytes % 1
[2022-03-19 13:00] VITALS: BP 111/67
[2022-03-19 16:48] VITALS: BP 116/56
[2022-03-19] MEDS: DOPamine 1600MCG/ML D5W 250 ML IV SCH (17:10)
[2022-03-19 22:00] VITALS: BP 129/83
[2022-03-20] MEDS: DOPamine 1600MCG/ML D5W 250 ML IV SCH ×3 (01:17→21:37)
[2022-03-20 05:00] VITALS: BP 129/66
[2022-03-20] MEDS: InsuLIN REG 1unit/0.01ml Soln (100units/ml) SC SCH ×4 (06:00→19:49)
[2022-03-20] MEDS: MIDODRINE HCL 10 MG TAB PO SCH ×3 (06:03→17:30)
[2022-03-20] MEDS: SUCRALFATE 1 GM/10 ML ORAL SUSP GT SCH ×3 (06:04→17:30)
[2022-03-20] MEDS: ACCU-CHEK COMFORT CURVE STRIP VI SCH ×4 (06:04→19:48)
[2022-03-20 06:47] LABS: BUN/Creatinine Ratio 9.3; Calcium 9.1 mg/dL (8.5-10.1); Potassium 4.2 mmol/L (3.5-5.1)
[2022-03-20] MEDS ORDERED: SODIUM CHL 0.9% 1000 ML BAG XX ONE (07:00)
[2022-03-20 09:10] VITALS: BP 139/87
[2022-03-20] MEDS: PANTOPRAZOLE 40 MG TAB PO SCH ×2 (10:00→21:35)
[2022-03-20] MEDS: NICOTINE 14 MG/24HR TOPICAL PATCH TD SCH (10:00)
[2022-03-20 12:43] VITALS: BP 118/70
[2022-03-20] MEDS: LACTULOSE 20Gm/30ML SOLN PO SCH ×3 (16:18→21:35)
[2022-03-20 16:28] VITALS: BP 114/78
[2022-03-20] MEDS ORDERED: EPOETIN ALFA-EPBX 10,000 UNIT/1ML VIAL SC ONE (21:00)
[2022-03-20 22:00] VITALS: BP 107/69
[2022-03-21] MEDS: ACCU-CHEK COMFORT CURVE STRIP VI SCH ×4 (00:19→18:24)
[2022-03-21] MEDS: LACTULOSE 20Gm/30ML SOLN PO SCH ×6 (02:00→21:20)
[2022-03-21 05:00] VITALS: BP 105/62
[2022-03-21] MEDS: MIDODRINE HCL 10 MG TAB PO SCH ×3 (05:49→18:24)
[2022-03-21] MEDS: SUCRALFATE 1 GM/10 ML ORAL SUSP GT SCH ×3 (05:50→18:23)
[2022-03-21] MEDS: InsuLIN REG 1unit/0.01ml Soln (100units/ml) SC SCH ×4 (05:57→18:00)
[2022-03-21 06:33] LABS: BUN/Creatinine Ratio 9.5; Calcium 8.1 mg/dL (8.5-10.1); Potassium 3.8 mmol/L (3.5-5.1)
[2022-03-21 09:25] VITALS: BP 111/71
[2022-03-21] MEDS: NICOTINE 14 MG/24HR TOPICAL PATCH TD SCH (10:00)
[2022-03-21] MEDS: PANTOPRAZOLE 40 MG TAB PO SCH ×2 (10:40→21:20)
[2022-03-21 12:42] VITALS: BP 110/67
[2022-03-21 17:12] VITALS: BP 97/57
[2022-03-21] MEDS ORDERED: ALBUMIN 25% 50 ML IV ONE (20:15)
[2022-03-21] MEDS: DOPamine 1600MCG/ML D5W 250 ML IV SCH (21:22)
[2022-03-21 22:00] VITALS: BP 95/56
[2022-03-22] MEDS: ACCU-CHEK COMFORT CURVE STRIP VI SCH ×5 (01:04→23:44)
[2022-03-22] MEDS: LACTULOSE 20Gm/30ML SOLN PO SCH ×6 (01:36→21:29)
[2022-03-22 05:00] VITALS: BP 102/63
[2022-03-22] MEDS: MIDODRINE HCL 10 MG TAB PO SCH ×3 (05:05→18:03)
[2022-03-22] MEDS: InsuLIN REG 1unit/0.01ml Soln (100units/ml) SC SCH ×5 (05:06→23:45)
[2022-03-22 05:53] LABS: BUN/Creatinine Ratio 10.5; Calcium 8.9 mg/dL (8.5-10.1); Potassium 3.7 mmol/L (3.5-5.1)
[2022-03-22] MEDS: SUCRALFATE 1 GM/10 ML ORAL SUSP GT SCH ×3 (06:09→18:02)
[2022-03-22] MEDS ORDERED: SODIUM CHL 0.9% 1000 ML BAG XX ONE (07:00)
[2022-03-22 08:42] LABS: INR 1.7 (0.9-1.15); Partial Thromboplastin Time 58.7 sec (24.6-33.4)
[2022-03-22 09:18] VITALS: BP 113/67
[2022-03-22] MEDS ORDERED: MIDODRINE HCL 10 MG TAB PO ONE ×2 (09:45→10:00)
[2022-03-22] MEDS: NICOTINE 14 MG/24HR TOPICAL PATCH TD SCH (10:00)
[2022-03-22] MEDS: PANTOPRAZOLE 40 MG TAB PO SCH ×2 (10:00→21:29)
[2022-03-22] MEDS: DOPamine 1600MCG/ML D5W 250 ML IV SCH (12:09)
[2022-03-22 13:07] VITALS: BP 99/67
[2022-03-22 17:02] VITALS: BP 103/62
[2022-03-22] MEDS ORDERED: EPOETIN ALFA-EPBX 10,000 UNIT/1ML VIAL SC ONE (21:00)
[2022-03-22 22:00] VITALS: BP 95/56
[2022-03-23] MEDS: LACTULOSE 20Gm/30ML SOLN PO SCH ×6 (02:22→22:28)
[2022-03-23] MEDS: DOPamine 1600MCG/ML D5W 250 ML IV SCH ×2 (02:36→17:44)
[2022-03-23 05:00] VITALS: BP 95/59
[2022-03-23] MEDS: MIDODRINE HCL 10 MG TAB PO SCH ×3 (05:40→17:44)
[2022-03-23] MEDS: ACCU-CHEK COMFORT CURVE STRIP VI SCH ×4 (05:48→22:36)
[2022-03-23] MEDS: InsuLIN REG 1unit/0.01ml Soln (100units/ml) SC SCH ×5 (05:49→22:36)
[2022-03-23] MEDS: SUCRALFATE 1 GM/10 ML ORAL SUSP GT SCH ×3 (06:14→17:00)
[2022-03-23 09:00] VITALS: BP 105/65
[2022-03-23] MEDS: NICOTINE 14 MG/24HR TOPICAL PATCH TD SCH (10:00)
[2022-03-23] MEDS: PANTOPRAZOLE 40 MG TAB PO SCH ×2 (10:17→22:29)
[2022-03-23 12:59] LABS: Hemoglobin 7.7 g/dL (13.5-17.5); Red Blood Cells 2.35 10^6/uL (4.5-5.90)
[2022-03-23 13:00] VITALS: BP_SYST 104; BP_SYST 123; BP_DIAS 61; BP_DIAS 62
[2022-03-23 13:00] LABS: Hematocrit 23.2 % (41.0-53.0); Mean Corpuscular Hemoglobin 32.7 pg (28.0-32.0); Mean Corpuscular Volume 98.9 fL (80.0-100.0); White Blood Cell 8.8 10^3/uL (4.4-10.8)
[2022-03-23 13:06] LABS: BUN/Creatinine Ratio 9.8; Calcium 8.4 mg/dL (8.5-10.1); Potassium 3.9 mmol/L (3.5-5.1)
[2022-03-23 13:07] LABS: Basophils % (manual) 0 (0.0-2.0); Metamyelocytes % 0
[2022-03-23 13:08] LABS: Blast Cells 0; Myelocytes % 0; Promyelocytes % 0; Reactive Lymphocytes 0
[2022-03-23 13:26] LABS: Band Neutrophils % (manual) 2; Eosinophils % (manual) 3 (0-7); Lymphocytes % (manual) 18 (10.0-50.0); Monocytes % (manual) 11 (0-12)
[2022-03-23 17:00] VITALS: BP 103/64
[2022-03-23 18:39] LABS: Urine Bacteria FEW /hpf (None Seen); Urine Blood 3+ /uL (Negative); Urine Hyaline Cast FEW /lpf (0 - 2); Urine Mucus FEW (None Seen); Urine Specific Gravity 1.015 (1.001-1.035); Urine WBC 209 /hpf (0 - 3)
[2022-03-23 22:00] VITALS: BP 104/67
[2022-03-24] MEDS: LACTULOSE 20Gm/30ML SOLN PO SCH ×5 (02:11→22:30)
[2022-03-24 05:00] VITALS: BP 97/63
[2022-03-24] MEDS: InsuLIN REG 1unit/0.01ml Soln (100units/ml) SC SCH ×4 (06:00→22:48)
[2022-03-24] MEDS: SUCRALFATE 1 GM/10 ML ORAL SUSP GT SCH ×3 (06:14→17:00)
[2022-03-24] MEDS: ACCU-CHEK COMFORT CURVE STRIP VI SCH ×4 (06:14→22:48)
[2022-03-24] MEDS: MIDODRINE HCL 10 MG TAB PO SCH ×3 (06:14→18:17)
[2022-03-24 07:16] LABS: Basophils # (auto) 0.1 10 ^3/uL (0-0.2); Basophils % (auto) 1.1 % (0.0-2.0); Eosinophils # (auto) 0.1 10 ^3/uL (0-0.8); Hemoglobin 7.8 g/dL (13.5-17.5); Lymphocytes # (auto) 1.4 10 ^3/uL (0.4-5.4); Monocytes # (auto) 1.8 10 ^3/uL (0-1.3); Nucleated Red Blood Cells % 0.1 %
[2022-03-24 07:20] LABS: Eosinophils % (auto) 1.3 % (0.0-7.0); Hematocrit 23.1 % (41.0-53.0); Lymphocytes % (auto) 12.1 % (10.0-50.0); Mean Corpuscular Hemoglobin 33.1 pg (28.0-32.0); Mean Corpuscular Hgb Conc. 33.8 g/dL (32.0-36.0); Neutrophils # (auto) 7.8 10 ^3/uL (1.6-8.6); Neutrophils % (auto) 69.5 % (37.0-80.0); Red Blood Cells 2.36 10^6/uL (4.5-5.90); Red Cell Distribution Width 19.5 % (11.8-14.3); White Blood Cell 11.3 10^3/uL (4.4-10.8)
[2022-03-24 07:39] LABS: Potassium 3.8 mmol/L (3.5-5.1)
[2022-03-24 07:43] LABS: BUN/Creatinine Ratio 10.6; Calcium 8.6 mg/dL (8.5-10.1); Magnesium 2.1 mg/dL (1.6-2.6)
[2022-03-24 09:06] VITALS: BP 99/60
[2022-03-24] MEDS: DOPamine 1600MCG/ML D5W 250 ML IV SCH (09:20)
[2022-03-24] MEDS: NICOTINE 14 MG/24HR TOPICAL PATCH TD SCH (09:42)
[2022-03-24] MEDS: PANTOPRAZOLE 40 MG TAB PO SCH ×2 (09:42→22:30)
[2022-03-24 13:00] VITALS: BP 95/56
[2022-03-24 17:05] VITALS: BP 133/64
[2022-03-24 22:00] VITALS: BP 90/48
[2022-03-25] VITALS (7 sets, daily range): BP systolic 81–93; BP diastolic 42–58
[2022-03-25] MEDS: SUCRALFATE 1 GM/10 ML ORAL SUSP GT SCH ×3 (05:42→17:53)
[2022-03-25] MEDS: ACCU-CHEK COMFORT CURVE STRIP VI SCH ×3 (05:42→17:54)
[2022-03-25] MEDS: MIDODRINE HCL 10 MG TAB PO SCH ×3 (05:42→17:54)
[2022-03-25] MEDS: InsuLIN REG 1unit/0.01ml Soln (100units/ml) SC SCH ×3 (06:00→17:54)
[2022-03-25 08:40] LABS: Potassium 3.3 mmol/L (3.5-5.1)
[2022-03-25 08:46] LABS: BUN/Creatinine Ratio 11.8; Calcium 8.2 mg/dL (8.5-10.1)
[2022-03-25] MEDS: NICOTINE 14 MG/24HR TOPICAL PATCH TD SCH (10:00)
[2022-03-25] MEDS: LACTULOSE 20Gm/30ML SOLN PO SCH ×2 (10:00→21:36)
[2022-03-25] MEDS: PANTOPRAZOLE 40 MG TAB PO SCH ×2 (10:15→21:37)
[2022-03-25] MEDS ORDERED: POTASSIUM CHL 20 Meq TABLET PO ONE (14:15)
[2022-03-25 23:13] LABS: Basophils # (auto) 0.1 10 ^3/uL (0-0.2); Eosinophils # (auto) 0.2 10 ^3/uL (0-0.8); Lymphocytes # (auto) 1.3 10 ^3/uL (0.4-5.4); Monocytes # (auto) 1.8 10 ^3/uL (0-1.3); Neutrophils # (auto) 8.6 10 ^3/uL (1.6-8.6); Nucleated Red Blood Cells % 0.1 %
[2022-03-25 23:15] LABS: Basophils % (auto) 0.9 % (0.0-2.0); Eosinophils % (auto) 1.4 % (0.0-7.0); Hematocrit 20.4 % (41.0-53.0); Lymphocytes % (auto) 10.7 % (10.0-50.0); Mean Corpuscular Hgb Conc. 33.6 g/dL (32.0-36.0); Mean Corpuscular Volume 98.3 fL (80.0-100.0); Monocytes % (auto) 15.2 % (0.0-12.0); Neutrophils % (auto) 71.8 % (37.0-80.0); Red Blood Cells 2.07 10^6/uL (4.5-5.90); Red Cell Distribution Width 19.5 % (11.8-14.3)
[2022-03-25 23:33] LABS: Hemoglobin 6.8 g/dL (13.5-17.5)
[2022-03-26] VITALS (15 sets, daily range): BP systolic 83–123; BP diastolic 50–82
[2022-03-26] MEDS: ACCU-CHEK COMFORT CURVE STRIP VI SCH ×4 (00:19→18:00)
[2022-03-26] MEDS: InsuLIN REG 1unit/0.01ml Soln (100units/ml) SC SCH ×4 (06:00→18:00)
[2022-03-26] MEDS: SUCRALFATE 1 GM/10 ML ORAL SUSP GT SCH ×3 (06:22→18:00)
[2022-03-26] MEDS: MIDODRINE HCL 10 MG TAB PO SCH ×3 (06:22→18:00)
[2022-03-26] MEDS: NICOTINE 14 MG/24HR TOPICAL PATCH TD SCH (09:43)
[2022-03-26] MEDS: PANTOPRAZOLE 40 MG TAB PO SCH (09:43)
[2022-03-26] MEDS: LACTULOSE 20Gm/30ML SOLN PO SCH (09:43)
[2022-03-26 10:10] LABS: Basophils # (auto) 0.1 10 ^3/uL (0-0.2); Eosinophils # (auto) 0.1 10 ^3/uL (0-0.8); Eosinophils % (auto) 1.1 % (0.0-7.0); Hematocrit 20.4 % (41.0-53.0); Lymphocytes # (auto) 1.3 10 ^3/uL (0.4-5.4); Lymphocytes % (auto) 10.5 % (10.0-50.0); Mean Corpuscular Hemoglobin 32.3 pg (28.0-32.0); Mean Corpuscular Hgb Conc. 33.5 g/dL (32.0-36.0); Mean Corpuscular Volume 96.6 fL (80.0-100.0); Monocytes # (auto) 1.9 10 ^3/uL (0-1.3); Monocytes % (auto) 15.3 % (0.0-12.0); Neutrophils % (auto) 72.1 % (37.0-80.0); Nucleated Red Blood Cells % 0.1 %; Red Blood Cells 2.11 10^6/uL (4.5-5.90); Red Cell Distribution Width 20.4 % (11.8-14.3); White Blood Cell 12.4 10^3/uL (4.4-10.8)
[2022-03-26 10:15] LABS: Hemoglobin 6.8 g/dL (13.5-17.5)
[2022-03-26] MEDS ORDERED: DOPamine 1600MCG/ML D5W 250 ML IV SCH (11:30)
[2022-03-26] MEDS ORDERED: ALBUMIN 25% 100 ML IV SCH (11:30)
[2022-03-26] MEDS ORDERED: SUCR1SUS10 PO (11:41)
[2022-03-26] MEDS ORDERED: PANT40T PO (11:41)
[2022-03-26] MEDS ORDERED: MID10T PO (11:41)
[2022-03-26] MEDS ORDERED: LACT10SO3 PO (11:41)
== END 2022-03-26 19:50 | disposition home health service (06) | DRG 253 ==
LOC: ER 15:18 → EDBD 15:18 → OVERFLOW 19:35 → TELE-WESTW 23:33
PROVIDERS: ADMIT Registered Nurse; ATTEND Internal Medicine
PROC: 30233N1 Transfusion of Nonautologous Red Blood Cells into Peripheral Vein, Percutaneous Approach (ICD-10-PCS; 2022-03-10)
PROC: 30233K1 Transfusion of Nonautologous Frozen Plasma into Peripheral Vein, Percutaneous Approach (ICD-10-PCS; 2022-03-11)
PROC: 0W9G3ZZ Drainage of Peritoneal Cavity, Percutaneous Approach (ICD-10-PCS; 2022-03-11)
PROC: 5A1D70Z Performance of Urinary Filtration, Intermittent, Less than 6 Hours Per Day (ICD-10-PCS; 2022-03-15)
PROC: 02H633Z Insertion of Infusion Device into Right Atrium, Percutaneous Approach (ICD-10-PCS; 2022-03-15)
PROC: B548ZZA Ultrasonography of Superior Vena Cava, Guidance (ICD-10-PCS; 2022-03-15)
PROC: B5181ZA Fluoroscopy of Superior Vena Cava using Low Osmolar Contrast, Guidance (ICD-10-PCS; 2022-03-15)
PROC: 0JH63XZ Insertion of Tunneled Vascular Access Device into Chest Subcutaneous Tissue and Fascia, Percutaneous Approach (ICD-10-PCS; 2022-03-15)
PROC: 5A1D70Z Performance of Urinary Filtration, Intermittent, Less than 6 Hours Per Day (ICD-10-PCS; 2022-03-17)
PROC: 5A1D70Z Performance of Urinary Filtration, Intermittent, Less than 6 Hours Per Day (ICD-10-PCS; 2022-03-20)
PROC: 0W9G3ZZ Drainage of Peritoneal Cavity, Percutaneous Approach (ICD-10-PCS; principal; 2022-03-22)
PROC: 5A1D70Z Performance of Urinary Filtration, Intermittent, Less than 6 Hours Per Day (ICD-10-PCS; 2022-03-22)
DX: K92.2 Gastrointestinal hemorrhage, unspecified (principal); K76.7 Hepatorenal syndrome; N17.0 Acute kidney failure with tubular necrosis; I13.2 Hypertensive heart and chronic kidney disease with heart failure and with stage 5 chronic kidney disease, or end stage renal disease; D68.9 Coagulation defect, unspecified; E88.09 Other disorders of plasma-protein metabolism, not elsewhere classified; N18.6 End stage renal disease; D63.8 Anemia in other chronic diseases classified elsewhere; I27.20 Pulmonary hypertension, unspecified; Z20.822 Contact with and (suspected) exposure to COVID-19; K70.31 Alcoholic cirrhosis of liver with ascites; K72.90 Hepatic failure, unspecified without coma; D62 Acute posthemorrhagic anemia; K76.0 Fatty (change of) liver, not elsewhere classified; K80.20 Calculus of gallbladder without cholecystitis without obstruction; E11.22 Type 2 diabetes mellitus with diabetic chronic kidney disease; D69.59 Other secondary thrombocytopenia; E66.01 Morbid (severe) obesity due to excess calories; Z68.39 Body mass index [BMI] 39.0-39.9, adult; J98.11 Atelectasis; F10.10 Alcohol abuse, uncomplicated; E87.5 Hyperkalemia; N40.0 Benign prostatic hyperplasia without lower urinary tract symptoms; R31.0 Gross hematuria; Z79.4 Long term (current) use of insulin; Z79.899 Other long term (current) drug therapy; Z82.49 Family history of ischemic heart disease and other diseases of the circulatory system; Z83.3 Family history of diabetes mellitus; Z99.2 Dependence on renal dialysis; Z72.0 Tobacco use; I50.32 Chronic diastolic (congestive) heart failure
CPT/HCPCS: 36415; 71045; 74176; 76700; 76705; 76775; 76942; 80048; 80053; 80307; 81001; 82140; 82270; 82306; 82570; 82962; 83735; 83880; 83970; 84100; 84154; 84156; 84300; 84484; 85007; 85014; 85018; 85025; 85027; 85610; 85730; 86803; 86850; 86900; 86901; 86920; 87086; 87205; 87340; 89051; 90935; 93005; 93306; 93970; 94640; 96365; 96367; 96375; 97110; 97116; 97163; 97530; 99152; C9113; G0378; J0696; J1642; J1815; J2001; J2250; J2405; J3430; J3490; P9047

== ENCOUNTER 2022-04-02 10:17 | Inpatient (IN) | payer MEDICAID ==
[~2022-04-02] VITALS: Ht 188 cm; Wt 131.6 kg
[~2022-04-02 10:17] MED LIST: LACT10SO3 PO; MID10T PO; PANT40T PO; SUCR1SUS10 PO
[2022-04-02 11:31] LABS: Basophils # (auto) 0.1 10 ^3/uL (0-0.2); Basophils % (auto) 1.1 % (0.0-2.0); Eosinophils # (auto) 0.2 10 ^3/uL (0-0.8)
[2022-04-02 11:36] LABS: Eosinophils % (auto) 2.3 % (0.0-7.0); Hematocrit 24.1 % (41.0-53.0); Hemoglobin 8.1 g/dL (13.5-17.5); Mean Corpuscular Hemoglobin 32.7 pg (28.0-32.0); Mean Corpuscular Hgb Conc. 33.5 g/dL (32.0-36.0); Mean Corpuscular Volume 97.5 fL (80.0-100.0); Monocytes # (auto) 0.9 10 ^3/uL (0-1.3); Monocytes % (auto) 10.8 % (0.0-12.0); Neutrophils % (auto) 73.8 % (37.0-80.0); Red Blood Cells 2.47 10^6/uL (4.5-5.90); Red Cell Distribution Width 20.4 % (11.8-14.3); White Blood Cell 8.2 10^3/uL (4.4-10.8)
[2022-04-02 11:58] LABS: INR 1.56 (0.9-1.15); Partial Thromboplastin Time 42.5 sec (24.6-33.4)
[2022-04-02 12:00] LABS: Albumin 2.1 g/dL (3.4-5.0); Anion Gap 10 (5-15); Blood Alcohol < 3.0 mg/dL (0-5); Blood Urea Nitrogen 45 mg/dL (7-18); Calcium 8.5 mg/dL (8.5-10.1); Carbon Dioxide 24 mmol/L (21-32); Chloride 99 mmol/L (98-107); Glucose 127 mg/dL (74-106); Magnesium 2.4 mg/dL (1.6-2.6); Potassium 3.7 mmol/L (3.5-5.1); Sodium 133 mmol/L (136-145)
[2022-04-02 12:02] LABS: Alanine Aminotransferase 39 U/L (16-61); Alkaline Phosphatase 140 U/L (45-117); Aspartate Aminotransferase 50 U/L (15-37); BUN/Creatinine Ratio 7.6; Bilirubin, Total 9.4 mg/dL (0.2-1.0); GFR African American 13 mL/min; GFR Non-African American 11 mL/min; Total Protein 7.8 g/dL (6.4-8.2)
[2022-04-02] MEDS ORDERED: ALBUMIN 25% 50 ML IV PRN (13:00)
[2022-04-02] MEDS ORDERED: SODIUM CHL 0.9% 1000 ML BAG XX ONE (13:00)
[2022-04-02 13:13] LABS: % Iron Saturation 104.8 % (20-55)
[2022-04-02] MEDS ORDERED: B-COMPLEX W/ C & FOLIC ACID(NEPHROVITE TAB) PO ONE (14:00)
[2022-04-02] MEDS ORDERED: MORPHINE SULFATE INJ 2 MG/ml SYRG IV PRN (14:00)
[2022-04-02] MEDS ORDERED: cefTRIAXone 1GM/50ML D5W 50 ML IV ONE (14:00)
[2022-04-02] MEDS ORDERED: NITROGLYCERIN 0.4 MG SL TAB SL PRN (14:00)
[2022-04-02] MEDS ORDERED: FAMOTIDINE (10MG/ML) 2ML VL IV ONE (14:00)
[2022-04-02] MEDS: MIDODRINE HCL 10 MG TAB PO SCH (17:32)
[2022-04-02] MEDS: LACTULOSE 20Gm/30ML SOLN PO SCH (17:32)
[2022-04-02] MEDS ORDERED: EPOETIN ALFA-EPBX 10,000 UNIT/1ML VIAL SC ONE (21:00)
[2022-04-03] VITALS (7 sets, daily range): BP systolic 101–123; BP diastolic 54–70
[2022-04-03] MEDS: LACTULOSE 20Gm/30ML SOLN PO SCH ×4 (00:02→17:00)
[2022-04-03 03:45] LABS: Urine Bacteria NONE SEEN /hpf (None Seen); Urine Blood 2+ /uL (Negative); Urine Hyaline Cast MANY /lpf (0 - 2); Urine Mucus FEW (None Seen); Urine WBC 33 /hpf (0 - 3)
[2022-04-03 03:53] LABS: Alcohol, Urine < 3.0 mg/dL (0-10); Amphetamine Screen, Urine NEGATIVE (NEGATIVE); Barbiturate Scree,Urine NEGATIVE (NEGATIVE); Benzodiazephine Screen, Urine NEGATIVE (NEGATIVE); Cocaine Screen, Urine NEGATIVE (NEGATIVE); Opiate Scree,Urine NEGATIVE (NEGATIVE); Phencyclidine Screen, Urine NEGATIVE (NEGATIVE)
[2022-04-03 04:01] LABS: Cannabinoid Screen, Urine POSITIVE (NEGATIVE)
[2022-04-03 05:02] LABS: Hemoglobin 7.9 g/dL (13.5-17.5); Red Blood Cells 2.43 10^6/uL (4.5-5.90)
[2022-04-03 05:04] LABS: Hematocrit 23.8 % (41.0-53.0); Mean Corpuscular Hemoglobin 32.7 pg (28.0-32.0); Mean Corpuscular Hgb Conc. 33.4 g/dL (32.0-36.0); Mean Corpuscular Volume 97.8 fL (80.0-100.0); White Blood Cell 8.3 10^3/uL (4.4-10.8)
[2022-04-03 05:11] LABS: Red Cell Distribution Width 20.5 % (11.8-14.3)
[2022-04-03 05:26] LABS: Albumin 2.1 g/dL (3.4-5.0); Calcium 8.4 mg/dL (8.5-10.1); Potassium 3.6 mmol/L (3.5-5.1)
[2022-04-03 05:29] LABS: Basophils % (manual) 0 (0.0-2.0); Bilirubin, Total 10.2 mg/dL (0.2-1.0); Blast Cells 0; Metamyelocytes % 0; Myelocytes % 0; Promyelocytes % 0; Reactive Lymphocytes 0; Total Protein 7.7 g/dL (6.4-8.2)
[2022-04-03] MEDS: MIDODRINE HCL 10 MG TAB PO SCH ×3 (05:58→17:00)
[2022-04-03] MEDS ORDERED: SODIUM CHL 0.9% 1000 ML BAG XX ONE (06:45)
[2022-04-03] MEDS: ALBUMIN 25% 50 ML IV ONE (06:45)
[2022-04-03] MEDS: ALBUMIN 25% 100 ML IV SCH ×3 (07:00→08:10)
[2022-04-03] MEDS ORDERED: DOPamine 1600MCG/ML D5W 250 ML IV SCH (07:00)
[2022-04-03 07:07] LABS: Band Neutrophils % (manual) 7; Eosinophils % (manual) 2 (0-7); Lymphocytes % (manual) 16 (10.0-50.0); Monocytes % (manual) 6 (0-12)
[2022-04-03] MEDS: cefTRIAXone 1GM/50ML D5W 50 ML IV SCH (09:42)
[2022-04-03] MEDS: B-COMPLEX W/ C & FOLIC ACID(NEPHROVITE TAB) PO SCH (10:12)
[2022-04-03] MEDS: FAMOTIDINE (10MG/ML) 2ML VL IV SCH (10:12)
[2022-04-03] MEDS ORDERED: ALBUMIN 25% 100 ML IV ONE (15:00)
[2022-04-03] MEDS: NOREPINEPHRINE 8 MG/250ML KIT 250 ML IV SCH (15:17)
[2022-04-03] MEDS ORDERED: EPOETIN ALFA-EPBX 10,000 UNIT/1ML VIAL SC ONE (21:00)
[2022-04-04] VITALS (81 sets, daily range): BP systolic 84–121; BP diastolic 43–81
[2022-04-04 05:04] LABS: Albumin 2.7 g/dL (3.4-5.0); BUN/Creatinine Ratio 7.7; Calcium 8.5 mg/dL (8.5-10.1); Potassium 3.9 mmol/L (3.5-5.1)
[2022-04-04 05:07] LABS: Bilirubin, Total 10.9 mg/dL (0.2-1.0); Total Protein 7.5 g/dL (6.4-8.2)
[2022-04-04 05:11] LABS: Basophils # (auto) 0.1 10 ^3/uL (0-0.2); Eosinophils # (auto) 0.3 10 ^3/uL (0-0.8); Eosinophils % (auto) 2.7 % (0.0-7.0); Hematocrit 21.8 % (41.0-53.0); Hemoglobin 7.2 g/dL (13.5-17.5); Lymphocytes # (auto) 1.3 10 ^3/uL (0.4-5.4); Lymphocytes % (auto) 13.6 % (10.0-50.0); Mean Corpuscular Hemoglobin 33.1 pg (28.0-32.0); Mean Corpuscular Hgb Conc. 33.1 g/dL (32.0-36.0); Mean Corpuscular Volume 99.7 fL (80.0-100.0); Monocytes # (auto) 1.3 10 ^3/uL (0-1.3); Monocytes % (auto) 13.3 % (0.0-12.0); Neutrophils # (auto) 6.8 10 ^3/uL (1.6-8.6); Neutrophils % (auto) 69.4 % (37.0-80.0); Nucleated Red Blood Cells % 0.2 %; Red Blood Cells 2.19 10^6/uL (4.5-5.90); White Blood Cell 9.8 10^3/uL (4.4-10.8)
[2022-04-04 05:12] LABS: Red Cell Distribution Width 20.7 % (11.8-14.3)
[2022-04-04] MEDS: MIDODRINE HCL 10 MG TAB PO SCH ×3 (06:30→18:14)
[2022-04-04] MEDS: LACTULOSE 20Gm/30ML SOLN PO SCH ×4 (06:30→18:14)
[2022-04-04] MEDS: FAMOTIDINE (10MG/ML) 2ML VL IV SCH (10:06)
[2022-04-04] MEDS: cefTRIAXone 1GM/50ML D5W 50 ML IV SCH (10:06)
[2022-04-04] MEDS: B-COMPLEX W/ C & FOLIC ACID(NEPHROVITE TAB) PO SCH (10:06)
[2022-04-04] MEDS: NOREPINEPHRINE 8 MG/250ML KIT 250 ML IV SCH (10:15)
[2022-04-04 10:16] LABS: INR 1.67 (0.9-1.15); Partial Thromboplastin Time 47.2 sec (24.6-33.4)
[2022-04-04] MEDS ORDERED: EPOETIN ALFA-EPBX 10,000 UNIT/1ML VIAL IV ONE (10:45)
[2022-04-04] MEDS: ALBUMIN 25% 50 ML IV SCH ×2 (14:35→22:30)
[2022-04-04] MEDS ORDERED: EPOETIN ALFA-EPBX 10,000 UNIT/1ML VIAL SC ONE (21:00)
[2022-04-05] VITALS (97 sets, daily range): BP systolic 82–123; BP diastolic 42–78
[2022-04-05] MEDS: LACTULOSE 20Gm/30ML SOLN PO SCH ×4 (00:30→18:18)
[2022-04-05 04:52] LABS: Basophils # (auto) 0.1 10 ^3/uL (0-0.2); Eosinophils # (auto) 0.2 10 ^3/uL (0-0.8); Nucleated Red Blood Cells % 0.1 %
[2022-04-05 05:03] LABS: Calcium 8.6 mg/dL (8.5-10.1); Magnesium 2.2 mg/dL (1.6-2.6); Potassium 3.8 mmol/L (3.5-5.1)
[2022-04-05 05:11] LABS: Eosinophils % (auto) 2.7 % (0.0-7.0); Lymphocytes # (auto) 1.4 10 ^3/uL (0.4-5.4); Lymphocytes % (auto) 15.1 % (10.0-50.0); Mean Corpuscular Hgb Conc. 33.4 g/dL (32.0-36.0); Monocytes # (auto) 1.2 10 ^3/uL (0-1.3); Monocytes % (auto) 13.3 % (0.0-12.0); Neutrophils # (auto) 6.1 10 ^3/uL (1.6-8.6); Neutrophils % (auto) 67.9 % (37.0-80.0); Red Blood Cells 2.02 10^6/uL (4.5-5.90)
[2022-04-05 05:12] LABS: Red Cell Distribution Width 21.2 % (11.8-14.3)
[2022-04-05 05:13] LABS: Hemoglobin 6.7 g/dL (13.5-17.5)
[2022-04-05] MEDS: MIDODRINE HCL 10 MG TAB PO SCH ×3 (06:00→18:19)
[2022-04-05] MEDS: ALBUMIN 25% 50 ML IV SCH (06:30)
[2022-04-05] MEDS: NOREPINEPHRINE BITARTRATE 32 MG in SODIUM CHL 0.9% 218 ML IV SCH ×2 (07:00→20:00)
[2022-04-05] MEDS: B-COMPLEX W/ C & FOLIC ACID(NEPHROVITE TAB) PO SCH (10:34)
[2022-04-05] MEDS: FAMOTIDINE (10MG/ML) 2ML VL IV SCH (10:34)
[2022-04-05] MEDS: cefTRIAXone 1GM/50ML D5W 50 ML IV SCH (10:35)
[2022-04-05] MEDS ORDERED: PANTOPRAZOLE 40 MG TAB PO SCH (14:15)
[2022-04-05] MEDS: SUCRALFATE 1 GM/10 ML ORAL SUSP GT SCH ×2 (18:18→22:13)
[2022-04-05] MEDS ORDERED: FUROSEMIDE 20 MG/2 ML VIAL IV ONE (21:30)
[2022-04-05] MEDS: PANTOPRAZOLE 40 MG TAB PO SCH (22:13)
[2022-04-05] MEDS: rifAXIMin 550 MG TAB PO SCH (22:13)
[2022-04-06] VITALS (99 sets, daily range): BP systolic 87–125; BP diastolic 52–80
[2022-04-06] MEDS: LACTULOSE 20Gm/30ML SOLN PO SCH ×4 (00:22→19:00)
[2022-04-06 05:08] LABS: Hematocrit 21.3 % (41.0-53.0); Hemoglobin 7.2 g/dL (13.5-17.5); Mean Corpuscular Hemoglobin 33.2 pg (28.0-32.0); Mean Corpuscular Hgb Conc. 33.6 g/dL (32.0-36.0); Red Blood Cells 2.16 10^6/uL (4.5-5.90); White Blood Cell 9.5 10^3/uL (4.4-10.8)
[2022-04-06 05:12] LABS: Band Neutrophils % (manual) 0; Basophils % (manual) 0 (0.0-2.0); Blast Cells 0; Metamyelocytes % 0; Myelocytes % 0; Promyelocytes % 0; Reactive Lymphocytes 0
[2022-04-06 05:19] LABS: BUN/Creatinine Ratio 7.9; Calcium 8.8 mg/dL (8.5-10.1)
[2022-04-06] MEDS: MIDODRINE HCL 10 MG TAB PO SCH ×3 (06:04→19:00)
[2022-04-06] MEDS: SUCRALFATE 1 GM/10 ML ORAL SUSP GT SCH ×4 (06:04→23:05)
[2022-04-06 06:50] LABS: Eosinophils % (manual) 1 (0-7); Lymphocytes % (manual) 14 (10.0-50.0); Monocytes % (manual) 10 (0-12)
[2022-04-06] MEDS ORDERED: SODIUM CHL 0.9% 1000 ML BAG XX ONE (07:00)
[2022-04-06] MEDS: B-COMPLEX W/ C & FOLIC ACID(NEPHROVITE TAB) PO SCH (10:39)
[2022-04-06] MEDS: PANTOPRAZOLE 40 MG TAB PO SCH ×2 (10:40→23:10)
[2022-04-06] MEDS: cefTRIAXone 1GM/50ML D5W 50 ML IV SCH (10:41)
[2022-04-06] MEDS: ALBUMIN 25% 100 ML IV SCH ×2 (10:42→13:02)
[2022-04-06] MEDS: rifAXIMin 550 MG TAB PO SCH ×2 (10:46→23:05)
[2022-04-06] MEDS: OCTREOTIDE ACETATE 100 MCG/ML VL SUBCUT SCH ×2 (16:46→23:09)
[2022-04-06] MEDS ORDERED: EPOETIN ALFA-EPBX 10,000 UNIT/1ML VIAL SC ONE (21:00)
[2022-04-07] VITALS (87 sets, daily range): BP systolic 78–132; BP diastolic 34–79
[2022-04-07] MEDS: LACTULOSE 20Gm/30ML SOLN PO SCH ×5 (00:03→23:55)
[2022-04-07 05:17] LABS: Basophils # (auto) 0.1 10 ^3/uL (0-0.2); Eosinophils # (auto) 0.2 10 ^3/uL (0-0.8); Lymphocytes # (auto) 0.9 10 ^3/uL (0.4-5.4)
[2022-04-07 05:18] LABS: Basophils % (auto) 1.6 % (0.0-2.0); Eosinophils % (auto) 2.3 % (0.0-7.0); Hematocrit 20.1 % (41.0-53.0); Lymphocytes % (auto) 11.4 % (10.0-50.0); Mean Corpuscular Hemoglobin 34.4 pg (28.0-32.0); Mean Corpuscular Hgb Conc. 34.2 g/dL (32.0-36.0); Mean Corpuscular Volume 100.7 fL (80.0-100.0); Monocytes # (auto) 1.3 10 ^3/uL (0-1.3); Monocytes % (auto) 17.3 % (0.0-12.0); Neutrophils # (auto) 5.1 10 ^3/uL (1.6-8.6); Neutrophils % (auto) 67.4 % (37.0-80.0); Nucleated Red Blood Cells % 0.1 %; White Blood Cell 7.6 10^3/uL (4.4-10.8)
[2022-04-07 05:22] LABS: Hemoglobin 6.9 g/dL (13.5-17.5); Red Cell Distribution Width 21.2 % (11.8-14.3)
[2022-04-07 05:33] LABS: INR 1.67 (0.9-1.15)
[2022-04-07] MEDS: MIDODRINE HCL 10 MG TAB PO SCH ×3 (05:38→18:26)
[2022-04-07] MEDS: OCTREOTIDE ACETATE 100 MCG/ML VL SUBCUT SCH ×3 (05:39→22:44)
[2022-04-07] MEDS ORDERED: FUROSEMIDE 20 MG/2 ML VIAL IV ONE (06:30)
[2022-04-07] MEDS: SUCRALFATE 1 GM/10 ML ORAL SUSP GT SCH ×4 (06:50→22:44)
[2022-04-07 07:30] LABS: BUN/Creatinine Ratio 7.3; Calcium 8.7 mg/dL (8.5-10.1); Potassium 3.9 mmol/L (3.5-5.1)
[2022-04-07] MEDS: NOREPINEPHRINE BITARTRATE 32 MG in SODIUM CHL 0.9% 218 ML IV SCH (07:34)
[2022-04-07] MEDS: B-COMPLEX W/ C & FOLIC ACID(NEPHROVITE TAB) PO SCH (08:47)
[2022-04-07] MEDS: cefTRIAXone 1GM/50ML D5W 50 ML IV SCH (08:47)
[2022-04-07] MEDS: PANTOPRAZOLE 40 MG TAB PO SCH ×2 (08:47→22:45)
[2022-04-07] MEDS: rifAXIMin 550 MG TAB PO SCH ×2 (08:48→22:45)
[2022-04-07 14:45] LABS: Hematocrit 23.5 % (41.0-53.0); Hemoglobin 7.6 g/dL (13.5-17.5)
[2022-04-08] VITALS (46 sets, daily range): BP systolic 88–120; BP diastolic 33–73
[2022-04-08] MEDS: LACTULOSE 20Gm/30ML SOLN PO SCH ×3 (05:40→17:42)
[2022-04-08] MEDS: OCTREOTIDE ACETATE 100 MCG/ML VL SUBCUT SCH ×3 (05:40→22:33)
[2022-04-08] MEDS: NOREPINEPHRINE BITARTRATE 32 MG in SODIUM CHL 0.9% 218 ML IV SCH (05:41)
[2022-04-08] MEDS: MIDODRINE HCL 10 MG TAB PO SCH ×3 (05:41→17:42)
[2022-04-08] MEDS: SUCRALFATE 1 GM/10 ML ORAL SUSP GT SCH ×4 (05:41→22:31)
[2022-04-08 06:03] LABS: BUN/Creatinine Ratio 7.7; Calcium 8.3 mg/dL (8.5-10.1); Potassium 3.6 mmol/L (3.5-5.1)
[2022-04-08 06:26] LABS: Hematocrit 23.1 % (41.0-53.0); Mean Corpuscular Hemoglobin 34.7 pg (28.0-32.0); Mean Corpuscular Hgb Conc. 34.6 g/dL (32.0-36.0); Mean Corpuscular Volume 100.4 fL (80.0-100.0); Red Blood Cells 2.31 10^6/uL (4.5-5.90); White Blood Cell 7.6 10^3/uL (4.4-10.8)
[2022-04-08 06:34] LABS: Red Cell Distribution Width 20.1 % (11.8-14.3)
[2022-04-08 06:36] LABS: Band Neutrophils % (manual) 0; Basophils % (manual) 0 (0.0-2.0); Blast Cells 0; Promyelocytes % 0; Reactive Lymphocytes 0
[2022-04-08 06:50] LABS: Eosinophils % (manual) 1 (0-7); Lymphocytes % (manual) 11 (10.0-50.0); Metamyelocytes % 1; Monocytes % (manual) 9 (0-12); Myelocytes % 1
[2022-04-08] MEDS: cefTRIAXone 1GM/50ML D5W 50 ML IV SCH (08:02)
[2022-04-08] MEDS: PANTOPRAZOLE 40 MG TAB PO SCH ×2 (09:15→22:32)
[2022-04-08] MEDS: B-COMPLEX W/ C & FOLIC ACID(NEPHROVITE TAB) PO SCH (09:15)
[2022-04-08] MEDS: rifAXIMin 550 MG TAB PO SCH ×2 (09:15→22:31)
[2022-04-08 22:51] LABS: BUN/Creatinine Ratio 8.1; Calcium 8.1 mg/dL (8.5-10.1); Magnesium 2.3 mg/dL (1.6-2.6); Potassium 3.5 mmol/L (3.5-5.1)
[2022-04-09] VITALS (41 sets, daily range): BP systolic 96–139; BP diastolic 49–72
[2022-04-09] MEDS: LACTULOSE 20Gm/30ML SOLN PO SCH ×4 (06:00→18:36)
[2022-04-09] MEDS: MIDODRINE HCL 10 MG TAB PO SCH ×3 (06:25→18:36)
[2022-04-09] MEDS: SUCRALFATE 1 GM/10 ML ORAL SUSP GT SCH ×4 (06:25→22:27)
[2022-04-09] MEDS: OCTREOTIDE ACETATE 100 MCG/ML VL SUBCUT SCH ×3 (06:29→22:26)
[2022-04-09] MEDS ORDERED: SODIUM CHL 0.9% 1000 ML BAG XX ONE (07:00)
[2022-04-09] MEDS: NOREPINEPHRINE BITARTRATE 32 MG in SODIUM CHL 0.9% 218 ML IV SCH (07:00)
[2022-04-09] MEDS: cefTRIAXone 1GM/50ML D5W 50 ML IV SCH (08:00)
[2022-04-09] MEDS: B-COMPLEX W/ C & FOLIC ACID(NEPHROVITE TAB) PO SCH (08:44)
[2022-04-09] MEDS: PANTOPRAZOLE 40 MG TAB PO SCH ×2 (08:44→22:28)
[2022-04-09] MEDS: ALBUMIN 25% 100 ML IV SCH ×2 (10:40→12:00)
[2022-04-09] MEDS: rifAXIMin 550 MG TAB PO SCH ×2 (14:26→22:27)
[2022-04-09 18:26] LABS: Hematocrit 22.6 % (41.0-53.0); Hemoglobin 7.3 g/dL (13.5-17.5); Mean Corpuscular Hemoglobin 32.6 pg (28.0-32.0); Mean Corpuscular Hgb Conc. 32.2 g/dL (32.0-36.0); Mean Corpuscular Volume 101.5 fL (80.0-100.0); Red Blood Cells 2.23 10^6/uL (4.5-5.90); White Blood Cell 7.6 10^3/uL (4.4-10.8)
[2022-04-09 18:36] LABS: Basophils % (manual) 0 (0.0-2.0); Blast Cells 0; Eosinophils % (manual) 0 (0-7); Metamyelocytes % 0; Myelocytes % 0; Promyelocytes % 0; Reactive Lymphocytes 0
[2022-04-09 19:41] LABS: Band Neutrophils % (manual) 4; Lymphocytes % (manual) 18 (10.0-50.0); Monocytes % (manual) 9 (0-12)
[2022-04-09] MEDS ORDERED: EPOETIN ALFA-EPBX 10,000 UNIT/1ML VIAL SC ONE (21:00)
[2022-04-10] VITALS (7 sets, daily range): BP systolic 90–105; BP diastolic 45–64
[2022-04-10] MEDS: LACTULOSE 20Gm/30ML SOLN PO SCH ×4 (00:05→18:00)
[2022-04-10 04:59] LABS: Mean Corpuscular Hemoglobin 34.3 pg (28.0-32.0); Mean Corpuscular Hgb Conc. 33.6 g/dL (32.0-36.0)
[2022-04-10 05:02] LABS: Hematocrit 23.3 % (41.0-53.0); Hemoglobin 7.8 g/dL (13.5-17.5); Red Blood Cells 2.28 10^6/uL (4.5-5.90); White Blood Cell 7.2 10^3/uL (4.4-10.8)
[2022-04-10 05:10] LABS: Basophils % (manual) 0 (0.0-2.0); Blast Cells 0; Metamyelocytes % 0; Myelocytes % 0; Promyelocytes % 0; Reactive Lymphocytes 0; Red Cell Distribution Width 20.3 % (11.8-14.3)
[2022-04-10 05:15] LABS: BUN/Creatinine Ratio 7.2; Calcium 8.1 mg/dL (8.5-10.1); Potassium 3.4 mmol/L (3.5-5.1)
[2022-04-10] MEDS: SUCRALFATE 1 GM/10 ML ORAL SUSP GT SCH ×3 (06:29→17:00)
[2022-04-10] MEDS: MIDODRINE HCL 10 MG TAB PO SCH ×3 (06:29→18:00)
[2022-04-10] MEDS: OCTREOTIDE ACETATE 100 MCG/ML VL SUBCUT SCH ×2 (06:29→14:00)
[2022-04-10 06:58] LABS: Band Neutrophils % (manual) 2; Eosinophils % (manual) 2 (0-7); Lymphocytes % (manual) 19 (10.0-50.0); Monocytes % (manual) 13 (0-12)
[2022-04-10] MEDS ORDERED: POTASSIUM CHL 20 Meq TABLET PO ONE (10:15)
[2022-04-10] MEDS: cefTRIAXone 1GM/50ML D5W 50 ML IV SCH (10:27)
[2022-04-10] MEDS: B-COMPLEX W/ C & FOLIC ACID(NEPHROVITE TAB) PO SCH (10:27)
[2022-04-10] MEDS: PANTOPRAZOLE 40 MG TAB PO SCH (10:27)
[2022-04-10] MEDS: rifAXIMin 550 MG TAB PO SCH (10:44)
[2022-04-10] MEDS ORDERED: POTASSIUM EFFERVESENT TAB 25 MEQ PO ONE (12:15)
[2022-04-11] MEDS ORDERED: SODIUM CHL 0.9% 1000 ML BAG XX ONE (07:00)
[2022-04-11] MEDS ORDERED: EPOETIN ALFA-EPBX 10,000 UNIT/1ML VIAL SC ONE (21:00)
== END 2022-04-10 18:40 | disposition home or self-care (01) | DRG 279 ==
LOC: ER 10:17 → EDBD 10:17 → TELE 14:08 → ICU CENTRL 04-03 22:15 → DOU IN ICU 04-08 16:40
PROVIDERS: ADMIT Internal Medicine; ATTEND Internal Medicine
PROC: 5A1D70Z Performance of Urinary Filtration, Intermittent, Less than 6 Hours Per Day (ICD-10-PCS; 2022-04-02)
PROC: 5A1D70Z Performance of Urinary Filtration, Intermittent, Less than 6 Hours Per Day (ICD-10-PCS; 2022-04-03)
PROC: 30233R1 Transfusion of Nonautologous Platelets into Peripheral Vein, Percutaneous Approach (ICD-10-PCS; principal; 2022-04-04)
PROC: 5A1D70Z Performance of Urinary Filtration, Intermittent, Less than 6 Hours Per Day (ICD-10-PCS; 2022-04-04)
PROC: 30233N1 Transfusion of Nonautologous Red Blood Cells into Peripheral Vein, Percutaneous Approach (ICD-10-PCS; 2022-04-05)
PROC: 0W9G3ZZ Drainage of Peritoneal Cavity, Percutaneous Approach (ICD-10-PCS; 2022-04-06)
PROC: 5A1D70Z Performance of Urinary Filtration, Intermittent, Less than 6 Hours Per Day (ICD-10-PCS; 2022-04-06)
PROC: 5A1D70Z Performance of Urinary Filtration, Intermittent, Less than 6 Hours Per Day (ICD-10-PCS; 2022-04-09)
DX: K72.90 Hepatic failure, unspecified without coma (principal); N17.0 Acute kidney failure with tubular necrosis; K76.7 Hepatorenal syndrome; I50.33 Acute on chronic diastolic (congestive) heart failure; G93.41 Metabolic encephalopathy; D68.4 Acquired coagulation factor deficiency; D63.1 Anemia in chronic kidney disease; E88.09 Other disorders of plasma-protein metabolism, not elsewhere classified; N18.6 End stage renal disease; Z20.822 Contact with and (suspected) exposure to COVID-19; I27.20 Pulmonary hypertension, unspecified; D69.59 Other secondary thrombocytopenia; E11.22 Type 2 diabetes mellitus with diabetic chronic kidney disease; F10.10 Alcohol abuse, uncomplicated; K70.31 Alcoholic cirrhosis of liver with ascites; K80.20 Calculus of gallbladder without cholecystitis without obstruction; E66.9 Obesity, unspecified; E86.1 Hypovolemia; Z68.39 Body mass index [BMI] 39.0-39.9, adult; D50.9 Iron deficiency anemia, unspecified; K62.5 Hemorrhage of anus and rectum; Z72.0 Tobacco use; Z71.6 Tobacco abuse counseling
CPT/HCPCS: 36415; 36600; 70450; 71045; 74176; 76705; 76942; 80048; 80053; 80307; 80320; 81001; 82140; 82270; 82728; 82805; 83540; 83550; 83735; 83880; 83986; 84484; 85007; 85014; 85018; 85025; 85027; 85610; 85730; 86850; 86900; 86901; 86920; 87081; 87086; 87205; 89051; 90935; 93005; 96365; 96366; 96367; 96368; 96375; 99291; G0378; J0696; J1642; J3490; P9047

== ENCOUNTER 2022-04-23 08:41 | Inpatient (IN) | payer MEDICAID ==
[~2022-04-23] VITALS: Ht 193 cm; Wt 106.4 kg
[2022-04-23 09:58] LABS: Basophils # (auto) 0.1 10 ^3/uL (0-0.2); Basophils % (auto) 0.7 % (0.0-2.0); Eosinophils # (auto) 0.1 10 ^3/uL (0-0.8); Monocytes # (auto) 0.9 10 ^3/uL (0-1.3); Nucleated Red Blood Cells % 0.1 %
[2022-04-23 10:00] LABS: Eosinophils % (auto) 1.8 % (0.0-7.0); Hematocrit 27.6 % (41.0-53.0); Hemoglobin 9.1 g/dL (13.5-17.5); Lymphocytes # (auto) 0.8 10 ^3/uL (0.4-5.4); Lymphocytes % (auto) 10.6 % (10.0-50.0); Mean Corpuscular Hemoglobin 33.8 pg (28.0-32.0); Mean Corpuscular Hgb Conc. 32.9 g/dL (32.0-36.0); Mean Corpuscular Volume 102.8 fL (80.0-100.0); Monocytes % (auto) 12.2 % (0.0-12.0); Neutrophils # (auto) 5.7 10 ^3/uL (1.6-8.6); Neutrophils % (auto) 74.7 % (37.0-80.0); Red Blood Cells 2.68 10^6/uL (4.5-5.90); White Blood Cell 7.7 10^3/uL (4.4-10.8)
[2022-04-23 10:03] LABS: Red Cell Distribution Width 21.6 % (11.8-14.3)
[2022-04-23 10:18] LABS: INR 1.51 (0.9-1.15); Partial Thromboplastin Time 40.4 sec (24.6-33.4)
[2022-04-23 10:38] LABS: Albumin 2.1 g/dL (3.4-5.0); Anion Gap 13 (5-15); Blood Alcohol < 3.0 mg/dL (0-5); Blood Urea Nitrogen 45 mg/dL (7-18); Calcium 8.6 mg/dL (8.5-10.1); Carbon Dioxide 24 mmol/L (21-32); Chloride 100 mmol/L (98-107); Glucose 126 mg/dL (74-106); Magnesium 2.5 mg/dL (1.6-2.6); Potassium 3.7 mmol/L (3.5-5.1); Sodium 137 mmol/L (136-145)
[2022-04-23 10:41] LABS: Alanine Aminotransferase 35 U/L (16-61); Alkaline Phosphatase 203 U/L (45-117); Aspartate Aminotransferase 73 U/L (15-37); BUN/Creatinine Ratio 7.1; Bilirubin, Total 8.5 mg/dL (0.2-1.0); GFR African American 12 mL/min; GFR Non-African American 10 mL/min
[2022-04-23] MEDS: LACTULOSE 20Gm/30ML SOLN PO SCH ×2 (12:02→18:05)
[2022-04-23] MEDS: MIDODRINE HCL 10 MG TAB PO SCH ×3 (12:02→22:40)
[2022-04-23] MEDS ORDERED: DEXTROSE (50%) 50ML SYRG IV PRN (13:00)
[2022-04-23] MEDS: OCTREOTIDE ACETATE 100 MCG/ML VL SUBCUT SCH ×2 (14:36→22:42)
[2022-04-23] MEDS: InsuLIN REG 1unit/0.01ml Soln (100units/ml) SC SCH ×2 (17:00→22:43)
[2022-04-23] MEDS: ACCU-CHEK COMFORT CURVE STRIP VI SCH ×2 (17:06→22:00)
[2022-04-23 19:47] LABS: Urine Bacteria FEW /hpf (None Seen); Urine Blood 2+ /uL (Negative); Urine Hyaline Cast MOD /lpf (0 - 2); Urine Specific Gravity 1.022 (1.001-1.035); Urine WBC 430 /hpf (0 - 3)
[2022-04-23 19:51] LABS: Amphetamine Screen, Urine NEGATIVE (NEGATIVE); Barbiturate Scree,Urine NEGATIVE (NEGATIVE); Benzodiazephine Screen, Urine NEGATIVE (NEGATIVE); Cannabinoid Screen, Urine POSITIVE (NEGATIVE); Cocaine Screen, Urine NEGATIVE (NEGATIVE); Opiate Scree,Urine NEGATIVE (NEGATIVE); Phencyclidine Screen, Urine NEGATIVE (NEGATIVE)
[2022-04-23 22:28] VITALS: BP 109/59
[2022-04-23] MEDS: HEPARIN SODIUM (PORCINE) 5000 UNITS/ML 1ML VIAL SC SCH (22:41)
[2022-04-24] MEDS: LACTULOSE 20Gm/30ML SOLN PO SCH ×5 (00:56→23:29)
[2022-04-24 05:00] VITALS: BP 111/70
[2022-04-24 05:26] LABS: Basophils # (auto) 0.1 10 ^3/uL (0-0.2); Eosinophils # (auto) 0.3 10 ^3/uL (0-0.8); Hematocrit 24.6 % (41.0-53.0); Lymphocytes # (auto) 1.2 10 ^3/uL (0.4-5.4); Monocytes # (auto) 1.1 10 ^3/uL (0-1.3); Monocytes % (auto) 14.6 % (0.0-12.0); Red Blood Cells 2.38 10^6/uL (4.5-5.90); White Blood Cell 7.6 10^3/uL (4.4-10.8)
[2022-04-24 05:29] LABS: Basophils % (auto) 0.8 % (0.0-2.0); Eosinophils % (auto) 3.5 % (0.0-7.0); Hemoglobin 8.2 g/dL (13.5-17.5); Lymphocytes % (auto) 16.5 % (10.0-50.0); Mean Corpuscular Hemoglobin 34.3 pg (28.0-32.0); Mean Corpuscular Hgb Conc. 33.3 g/dL (32.0-36.0); Mean Corpuscular Volume 103.3 fL (80.0-100.0); Neutrophils # (auto) 4.9 10 ^3/uL (1.6-8.6); Neutrophils % (auto) 64.6 % (37.0-80.0); Nucleated Red Blood Cells % 0.2 %
[2022-04-24 05:40] LABS: Red Cell Distribution Width 21.2 % (11.8-14.3)
[2022-04-24 06:14] LABS: Potassium 4.3 mmol/L (3.5-5.1)
[2022-04-24 06:15] LABS: Albumin 1.6 g/dL (3.4-5.0); BUN/Creatinine Ratio 7.8; Bilirubin, Total 9.6 mg/dL (0.2-1.0); Calcium 8.5 mg/dL (8.5-10.1); Total Protein 7.1 g/dL (6.4-8.2)
[2022-04-24] MEDS: ACCU-CHEK COMFORT CURVE STRIP VI SCH ×4 (06:26→23:26)
[2022-04-24] MEDS: InsuLIN REG 1unit/0.01ml Soln (100units/ml) SC SCH ×4 (06:26→23:33)
[2022-04-24] MEDS: OCTREOTIDE ACETATE 100 MCG/ML VL SUBCUT SCH ×3 (06:28→23:28)
[2022-04-24] MEDS: MIDODRINE HCL 10 MG TAB PO SCH ×3 (06:29→23:26)
[2022-04-24 09:00] VITALS: BP 105/59
[2022-04-24] MEDS: HEPARIN SODIUM (PORCINE) 5000 UNITS/ML 1ML VIAL SC SCH ×2 (10:00→22:50)
[2022-04-24 13:00] VITALS: BP 104/68
[2022-04-24] MEDS: ALBUMIN 25% 100 ML IV PRN ×2 (14:05→15:32)
[2022-04-24 17:00] VITALS: BP 110/76
[2022-04-24] MEDS ORDERED: EPOETIN ALFA-EPBX 10,000 UNIT/1ML VIAL SC ONE (21:00)
[2022-04-24 22:00] VITALS: BP 119/66
[2022-04-25 05:00] VITALS: BP 118/74
[2022-04-25] MEDS: ACCU-CHEK COMFORT CURVE STRIP VI SCH ×4 (06:27→21:16)
[2022-04-25] MEDS: InsuLIN REG 1unit/0.01ml Soln (100units/ml) SC SCH ×4 (06:32→21:21)
[2022-04-25] MEDS: LACTULOSE 20Gm/30ML SOLN PO SCH ×3 (06:36→18:47)
[2022-04-25] MEDS: MIDODRINE HCL 10 MG TAB PO SCH ×3 (06:36→21:14)
[2022-04-25] MEDS: OCTREOTIDE ACETATE 100 MCG/ML VL SUBCUT SCH ×3 (06:37→21:20)
[2022-04-25 07:26] LABS: Basophils # (auto) 0.1 10 ^3/uL (0-0.2); Eosinophils # (auto) 0.2 10 ^3/uL (0-0.8); Hemoglobin 7.9 g/dL (13.5-17.5); Monocytes # (auto) 1.2 10 ^3/uL (0-1.3); Neutrophils % (auto) 71.7 % (37.0-80.0); Nucleated Red Blood Cells % 0.1 %
[2022-04-25 07:28] LABS: Basophils % (auto) 0.9 % (0.0-2.0); Eosinophils % (auto) 1.9 % (0.0-7.0); Hematocrit 23.8 % (41.0-53.0); Lymphocytes # (auto) 1.2 10 ^3/uL (0.4-5.4); Lymphocytes % (auto) 12.5 % (10.0-50.0); Mean Corpuscular Hemoglobin 34.1 pg (28.0-32.0); Mean Corpuscular Hgb Conc. 33.3 g/dL (32.0-36.0); Mean Corpuscular Volume 102.5 fL (80.0-100.0); Neutrophils # (auto) 6.7 10 ^3/uL (1.6-8.6); Red Blood Cells 2.32 10^6/uL (4.5-5.90); White Blood Cell 9.4 10^3/uL (4.4-10.8)
[2022-04-25 07:37] LABS: BUN/Creatinine Ratio 9.4; Calcium 8.6 mg/dL (8.5-10.1)
[2022-04-25 07:42] LABS: Red Cell Distribution Width 20.2 % (11.8-14.3)
[2022-04-25 09:00] VITALS: BP_SYST 103; BP_DIAS 51; BP_DIAS 61
[2022-04-25] MEDS: HEPARIN SODIUM (PORCINE) 5000 UNITS/ML 1ML VIAL SC SCH ×2 (10:00→21:15)
[2022-04-25] MEDS ORDERED: ALBUMIN 25% 100 ML IV ONE (11:45)
[2022-04-25 13:00] VITALS: BP 103/51
[2022-04-25 17:00] VITALS: BP 101/63
[2022-04-25 22:00] VITALS: BP 99/62
[2022-04-26 04:59] VITALS: BP 94/51
[2022-04-26 05:47] LABS: Basophils # (auto) 0.1 10 ^3/uL (0-0.2); Eosinophils # (auto) 0.1 10 ^3/uL (0-0.8); Eosinophils % (auto) 0.8 % (0.0-7.0); Hemoglobin 7.6 g/dL (13.5-17.5); Monocytes # (auto) 1.5 10 ^3/uL (0-1.3); Neutrophils # (auto) 7.6 10 ^3/uL (1.6-8.6)
[2022-04-26 05:51] LABS: Basophils % (auto) 0.7 % (0.0-2.0); Hematocrit 22.9 % (41.0-53.0); Lymphocytes # (auto) 1.2 10 ^3/uL (0.4-5.4); Lymphocytes % (auto) 11.8 % (10.0-50.0); Mean Corpuscular Hemoglobin 34.4 pg (28.0-32.0); Mean Corpuscular Volume 104.1 fL (80.0-100.0); Neutrophils % (auto) 72.7 % (37.0-80.0); White Blood Cell 10.4 10^3/uL (4.4-10.8)
[2022-04-26 05:53] LABS: Albumin 2.3 g/dL (3.4-5.0); Calcium 8.5 mg/dL (8.5-10.1); Potassium 4.2 mmol/L (3.5-5.1)
[2022-04-26] MEDS: OCTREOTIDE ACETATE 100 MCG/ML VL SUBCUT SCH ×3 (05:54→21:19)
[2022-04-26] MEDS: MIDODRINE HCL 10 MG TAB PO SCH ×3 (05:54→21:16)
[2022-04-26] MEDS: ACCU-CHEK COMFORT CURVE STRIP VI SCH ×4 (05:55→21:29)
[2022-04-26 05:57] LABS: BUN/Creatinine Ratio 10.2; Bilirubin, Total 13.7 mg/dL (0.2-1.0); Total Protein 7.2 g/dL (6.4-8.2)
[2022-04-26 06:04] LABS: Red Cell Distribution Width 20.1 % (11.8-14.3)
[2022-04-26] MEDS: InsuLIN REG 1unit/0.01ml Soln (100units/ml) SC SCH ×4 (06:07→21:39)
[2022-04-26] MEDS ORDERED: SODIUM CHL 0.9% 1000 ML BAG XX ONE (07:00)
[2022-04-26 09:00] VITALS: BP 92/53
[2022-04-26] MEDS: ALBUMIN 25% 100 ML IV SCH ×2 (09:46→09:47)
[2022-04-26] MEDS: HEPARIN SODIUM (PORCINE) 5000 UNITS/ML 1ML VIAL SC SCH ×2 (10:00→21:20)
[2022-04-26] MEDS: LACTULOSE 20Gm/30ML SOLN PO SCH ×2 (10:00→21:17)
[2022-04-26] MEDS: NITROGLYCERIN 0.4 MG SL TAB SL PRN (10:53)
[2022-04-26 13:00] VITALS: BP 90/47
[2022-04-26 16:35] VITALS: BP 97/60
[2022-04-26] MEDS ORDERED: EPOETIN ALFA-EPBX 10,000 UNIT/1ML VIAL SC ONE (21:00)
[2022-04-26 21:30] VITALS: BP 98/60
[2022-04-27 04:30] VITALS: BP 107/65
[2022-04-27 06:16] LABS: Basophils # (auto) 0.1 10 ^3/uL (0-0.2); Eosinophils # (auto) 0.2 10 ^3/uL (0-0.8); Eosinophils % (auto) 2.1 % (0.0-7.0); Hematocrit 21.9 % (41.0-53.0); Lymphocytes # (auto) 1.2 10 ^3/uL (0.4-5.4); White Blood Cell 9.8 10^3/uL (4.4-10.8)
[2022-04-27 06:19] LABS: Basophils % (auto) 0.6 % (0.0-2.0); Hemoglobin 7.2 g/dL (13.5-17.5); Lymphocytes % (auto) 12.2 % (10.0-50.0); Mean Corpuscular Hemoglobin 34.1 pg (28.0-32.0); Mean Corpuscular Hgb Conc. 32.6 g/dL (32.0-36.0); Mean Corpuscular Volume 104.4 fL (80.0-100.0); Monocytes # (auto) 1.2 10 ^3/uL (0-1.3); Monocytes % (auto) 12.6 % (0.0-12.0); Neutrophils # (auto) 7.1 10 ^3/uL (1.6-8.6); Neutrophils % (auto) 72.5 % (37.0-80.0); Red Cell Distribution Width 19.5 % (11.8-14.3)
[2022-04-27] MEDS: ACCU-CHEK COMFORT CURVE STRIP VI SCH ×4 (06:23→23:08)
[2022-04-27] MEDS: InsuLIN REG 1unit/0.01ml Soln (100units/ml) SC SCH ×4 (06:23→23:01)
[2022-04-27 06:25] LABS: BUN/Creatinine Ratio 10.8; Calcium 8.6 mg/dL (8.5-10.1); Potassium 4.3 mmol/L (3.5-5.1)
[2022-04-27] MEDS: MIDODRINE HCL 10 MG TAB PO SCH ×3 (06:27→22:57)
[2022-04-27] MEDS: OCTREOTIDE ACETATE 100 MCG/ML VL SUBCUT SCH ×3 (06:28→22:58)
[2022-04-27 09:00] VITALS: BP 97/54
[2022-04-27] MEDS: LACTULOSE 20Gm/30ML SOLN PO SCH ×2 (09:59→22:57)
[2022-04-27] MEDS: HEPARIN SODIUM (PORCINE) 5000 UNITS/ML 1ML VIAL SC SCH ×2 (10:07→22:59)
[2022-04-27] MEDS ORDERED: LACTULOSE 20Gm/30ML SOLN PO SCH (10:45)
[2022-04-27 13:00] VITALS: BP 100/55
[2022-04-27 16:34] VITALS: BP 91/54
[2022-04-27 22:00] VITALS: BP 89/45
[2022-04-28] VITALS (39 sets, daily range): BP systolic 81–126; BP diastolic 35–71
[2022-04-28 02:47] LABS: Albumin 2.4 g/dL (3.4-5.0); BUN/Creatinine Ratio 11.6; Calcium 8.7 mg/dL (8.5-10.1); Potassium 4.4 mmol/L (3.5-5.1)
[2022-04-28 02:50] LABS: Bilirubin, Total 13.2 mg/dL (0.2-1.0); Total Protein 7.3 g/dL (6.4-8.2)
[2022-04-28] MEDS: InsuLIN REG 1unit/0.01ml Soln (100units/ml) SC SCH ×4 (06:33→23:23)
[2022-04-28] MEDS: ACCU-CHEK COMFORT CURVE STRIP VI SCH ×4 (06:33→23:23)
[2022-04-28] MEDS: MIDODRINE HCL 10 MG TAB PO SCH ×3 (06:51→23:30)
[2022-04-28] MEDS: OCTREOTIDE ACETATE 100 MCG/ML VL SUBCUT SCH ×3 (06:52→23:22)
[2022-04-28] MEDS ORDERED: SODIUM CHL 0.9% 1000 ML BAG XX ONE (07:00)
[2022-04-28 07:31] LABS: Hemoglobin 7.9 g/dL (13.5-17.5)
[2022-04-28 07:36] LABS: Basophils # (auto) 0.1 10 ^3/uL (0-0.2); Basophils % (auto) 0.7 % (0.0-2.0); Eosinophils # (auto) 0.2 10 ^3/uL (0-0.8); Eosinophils % (auto) 2.1 % (0.0-7.0); Hematocrit 24.4 % (41.0-53.0); Lymphocytes # (auto) 0.9 10 ^3/uL (0.4-5.4); Lymphocytes % (auto) 10.5 % (10.0-50.0); Mean Corpuscular Hemoglobin 34.5 pg (28.0-32.0); Mean Corpuscular Hgb Conc. 32.3 g/dL (32.0-36.0); Mean Corpuscular Volume 106.6 fL (80.0-100.0); Monocytes # (auto) 1.3 10 ^3/uL (0-1.3); Neutrophils # (auto) 6.4 10 ^3/uL (1.6-8.6); Neutrophils % (auto) 71.7 % (37.0-80.0); Nucleated Red Blood Cells % 0.2 %; Red Blood Cells 2.28 10^6/uL (4.5-5.90); Red Cell Distribution Width 19.5 % (11.8-14.3); White Blood Cell 8.9 10^3/uL (4.4-10.8)
[2022-04-28 07:48] LABS: BUN/Creatinine Ratio 11.5; Calcium 8.8 mg/dL (8.5-10.1); Potassium 4.5 mmol/L (3.5-5.1)
[2022-04-28] MEDS: LACTULOSE 20Gm/30ML SOLN PO SCH (10:00)
[2022-04-28] MEDS: HEPARIN SODIUM (PORCINE) 5000 UNITS/ML 1ML VIAL SC SCH ×2 (10:00→23:22)
[2022-04-28] MEDS: NITROGLYCERIN 0.4 MG SL TAB SL PRN ×2 (10:38→10:46)
[2022-04-28] MEDS: MORPHINE SULFATE INJ 2 MG/ml SYRG IV PRN (10:51)
[2022-04-28] MEDS ORDERED: LACTULOSE 10g/15ml SOLN 473ML PR ONE (13:45)
[2022-04-28] MEDS: cefTRIAXone 1GM/50ML D5W 50 ML IV SCH (14:00)
[2022-04-28] MEDS: AZITHROMYCIN 500MG/ 250ML 250 ML IV SCH (15:00)
[2022-04-28] MEDS: NOREPINEPHRINE 8 MG/250ML KIT 250 ML IV SCH (15:45)
[2022-04-28] MEDS: LACTULOSE 10g/15ml SOLN 473ML PR SCH ×2 (18:44→23:36)
[2022-04-28] MEDS ORDERED: EPOETIN ALFA-EPBX 10,000 UNIT/1ML VIAL SC ONE (21:00)
[2022-04-29] VITALS (132 sets, daily range): BP systolic 85–148; BP diastolic 29–76
[2022-04-29 05:30] LABS: Anion Gap 17 (5-15); BUN/Creatinine Ratio 10.7; Blood Urea Nitrogen 78 mg/dL (7-18); Calcium 8.8 mg/dL (8.5-10.1); Carbon Dioxide 16 mmol/L (21-32); Chloride 102 mmol/L (98-107); GFR African American 10 mL/min; GFR Non-African American 8 mL/min; Glucose 157 mg/dL (74-106); Potassium 4.2 mmol/L (3.5-5.1); Sodium 135 mmol/L (136-145)
[2022-04-29] MEDS: MIDODRINE HCL 10 MG TAB PO SCH ×3 (06:11→23:16)
[2022-04-29] MEDS: LACTULOSE 10g/15ml SOLN 473ML PR SCH ×2 (06:12→17:56)
[2022-04-29] MEDS: OCTREOTIDE ACETATE 100 MCG/ML VL SUBCUT SCH ×3 (06:12→23:16)
[2022-04-29] MEDS: ACCU-CHEK COMFORT CURVE STRIP VI SCH ×4 (06:12→22:21)
[2022-04-29] MEDS: InsuLIN REG 1unit/0.01ml Soln (100units/ml) SC SCH ×4 (06:13→22:00)
[2022-04-29] MEDS ORDERED: BUMETANIDE 2.5mg/10ml (0.25 mg/ml) INJ IV ONE (09:30)
[2022-04-29] MEDS: cefTRIAXone 1GM/50ML D5W 50 ML IV SCH (09:52)
[2022-04-29] MEDS: AZITHROMYCIN 500MG/ 250ML 250 ML IV SCH (09:52)
[2022-04-29] MEDS: HEPARIN SODIUM (PORCINE) 5000 UNITS/ML 1ML VIAL SC SCH ×2 (09:53→22:00)
[2022-04-29 10:12] LABS: Basophils % (auto) 0.3 % (0.0-2.0); Eosinophils # (auto) 0 10 ^3/uL (0-0.8); Hemoglobin 7.4 g/dL (13.5-17.5); Monocytes # (auto) 1.5 10 ^3/uL (0-1.3); White Blood Cell 16.4 10^3/uL (4.4-10.8)
[2022-04-29 10:13] LABS: Basophils # (auto) 0 10 ^3/uL (0-0.2); Eosinophils % (auto) 0.1 % (0.0-7.0); Hematocrit 23.4 % (41.0-53.0); Lymphocytes # (auto) 0.7 10 ^3/uL (0.4-5.4); Lymphocytes % (auto) 4.4 % (10.0-50.0); Mean Corpuscular Hemoglobin 33.5 pg (28.0-32.0); Mean Corpuscular Hgb Conc. 31.6 g/dL (32.0-36.0); Mean Corpuscular Volume 106.1 fL (80.0-100.0); Monocytes % (auto) 8.9 % (0.0-12.0); Neutrophils # (auto) 14.2 10 ^3/uL (1.6-8.6); Neutrophils % (auto) 86.3 % (37.0-80.0); Red Blood Cells 2.21 10^6/uL (4.5-5.90)
[2022-04-29] MEDS ORDERED: ALPRAZolam 0.5 MG TAB PO PRN (14:00)
[2022-04-29] MEDS: NOREPINEPHRINE 8 MG/250ML KIT 250 ML IV SCH ×2 (15:45→17:58)
[2022-04-29] MEDS ORDERED: SODIUM CHL 0.9% 1000 ML BAG XX ONE (16:30)
[2022-04-29] MEDS ORDERED: EPOETIN ALFA-EPBX 10,000 UNIT/1ML VIAL SC ONE (21:00)
[2022-04-30] VITALS (137 sets, daily range): BP systolic 79–116; BP diastolic 32–68
[2022-04-30 04:50] LABS: Lymphocytes # (auto) 0.8 10 ^3/uL (0.4-5.4); Monocytes # (auto) 1.5 10 ^3/uL (0-1.3); Nucleated Red Blood Cells % 0.1 %
[2022-04-30 04:53] LABS: Basophils # (auto) 0.1 10 ^3/uL (0-0.2); Basophils % (auto) 0.5 % (0.0-2.0); Eosinophils # (auto) 0.1 10 ^3/uL (0-0.8); Eosinophils % (auto) 0.5 % (0.0-7.0); Hematocrit 24.6 % (41.0-53.0); Hemoglobin 8.2 g/dL (13.5-17.5); Lymphocytes % (auto) 6.6 % (10.0-50.0); Mean Corpuscular Hemoglobin 34.7 pg (28.0-32.0); Mean Corpuscular Hgb Conc. 33.3 g/dL (32.0-36.0); Monocytes % (auto) 13.1 % (0.0-12.0); Neutrophils # (auto) 9.3 10 ^3/uL (1.6-8.6); Neutrophils % (auto) 79.3 % (37.0-80.0); Red Blood Cells 2.37 10^6/uL (4.5-5.90); Red Cell Distribution Width 18.3 % (11.8-14.3); White Blood Cell 11.8 10^3/uL (4.4-10.8)
[2022-04-30 05:08] LABS: Calcium 8.7 mg/dL (8.5-10.1); Potassium 3.9 mmol/L (3.5-5.1)
[2022-04-30] MEDS: ALBUMIN 25% 100 ML IV PRN (05:28)
[2022-04-30] MEDS: MIDODRINE HCL 10 MG TAB PO SCH ×3 (06:36→23:15)
[2022-04-30] MEDS: LACTULOSE 10g/15ml SOLN 473ML PR SCH ×2 (06:37→22:00)
[2022-04-30] MEDS: OCTREOTIDE ACETATE 100 MCG/ML VL SUBCUT SCH ×3 (06:37→23:03)
[2022-04-30] MEDS: ACCU-CHEK COMFORT CURVE STRIP VI SCH ×4 (06:38→23:03)
[2022-04-30] MEDS: InsuLIN REG 1unit/0.01ml Soln (100units/ml) SC SCH ×4 (07:32→22:00)
[2022-04-30] MEDS: NOREPINEPHRINE 8 MG/250ML KIT 250 ML IV SCH ×2 (08:35→16:05)
[2022-04-30 09:52] LABS: INR 1.9 (0.9-1.15); Partial Thromboplastin Time 45.7 sec (24.6-33.4)
[2022-04-30] MEDS: HEPARIN SODIUM (PORCINE) 5000 UNITS/ML 1ML VIAL SC SCH ×2 (09:53→22:00)
[2022-04-30] MEDS: AZITHROMYCIN 500MG/ 250ML 250 ML IV SCH (10:08)
[2022-04-30] MEDS: cefTRIAXone 1GM/50ML D5W 50 ML IV SCH (10:08)
[2022-04-30] MEDS: LORazepam 2MG/ML-1ML VIAL IV PRN (11:54)
[2022-04-30] MEDS ORDERED: LIDOCAINE 1% (LOCAL ANESTH.) PF 5ml SDV ID ONE (14:00)
[2022-04-30] MEDS ORDERED: METOPROLOL TARTRATE 1MG/1ML-5ML VIAL IV ONE ×2 (20:10→20:15)
[2022-04-30] MEDS ORDERED: ALBUMIN 5% 250 ML IV ONE (20:30)
[2022-04-30] MEDS: SODIUM CHLOR 0.9% PF (SALINE LOCK) 10ML VIAL/SYR IV SCH (23:02)
[2022-04-30 23:04] LABS: Albumin 2.9 g/dL (3.4-5.0); BUN/Creatinine Ratio 11.8; Calcium 8.6 mg/dL (8.5-10.1); Magnesium 2.4 mg/dL (1.6-2.6)
[2022-04-30 23:15] LABS: Bilirubin, Total 16.8 mg/dL (0.2-1.0); Total Protein 7.4 g/dL (6.4-8.2)
[2022-05-01] VITALS (120 sets, daily range): BP systolic 79–157; BP diastolic 29–76
[2022-05-01] MEDS ORDERED: AMIODARONE 450mg/250ml AE 250 ML IV SCH
[2022-05-01] MEDS ORDERED: AMIODARONE HCL 150 MG in D5W 5% 100 ML IV ONE (00:15)
[2022-05-01] MEDS ORDERED: AMIODARONE HCL (50 MG/ ML) 3 ML VIAL IV ONE (00:33)
[2022-05-01] MEDS: NOREPINEPHRINE 8 MG/250ML KIT 250 ML IV SCH ×2 (00:57→06:58)
[2022-05-01 05:41] LABS: Basophils # (auto) 0.1 10 ^3/uL (0-0.2); Eosinophils # (auto) 0.1 10 ^3/uL (0-0.8); Eosinophils % (auto) 1.1 % (0.0-7.0); Lymphocytes # (auto) 0.9 10 ^3/uL (0.4-5.4); Nucleated Red Blood Cells % 0.2 %; White Blood Cell 10.2 10^3/uL (4.4-10.8)
[2022-05-01] MEDS: MIDODRINE HCL 10 MG TAB PO SCH ×3 (05:50→22:02)
[2022-05-01 06:19] LABS: Basophils % (auto) 0.7 % (0.0-2.0); Lymphocytes % (auto) 8.6 % (10.0-50.0); Mean Corpuscular Hemoglobin 34.8 pg (28.0-32.0); Mean Corpuscular Hgb Conc. 33.4 g/dL (32.0-36.0); Mean Corpuscular Volume 104.4 fL (80.0-100.0); Monocytes # (auto) 1.2 10 ^3/uL (0-1.3); Monocytes % (auto) 12.1 % (0.0-12.0); Neutrophils # (auto) 7.9 10 ^3/uL (1.6-8.6); Neutrophils % (auto) 77.5 % (37.0-80.0); Red Blood Cells 2.01 10^6/uL (4.5-5.90); Red Cell Distribution Width 18.6 % (11.8-14.3)
[2022-05-01] MEDS: OCTREOTIDE ACETATE 100 MCG/ML VL SUBCUT SCH ×3 (06:32→21:48)
[2022-05-01] MEDS: ACCU-CHEK COMFORT CURVE STRIP VI SCH ×4 (06:32→23:18)
[2022-05-01] MEDS: InsuLIN REG 1unit/0.01ml Soln (100units/ml) SC SCH ×4 (06:41→23:20)
[2022-05-01] MEDS ORDERED: SODIUM CHL 0.9% 1000 ML BAG XX ONE (07:00)
[2022-05-01] MEDS: AMIODARONE 450mg/250ml AE 250 ML IV SCH ×2 (08:00→21:57)
[2022-05-01] MEDS ORDERED: AMIODARONE 450mg/250ml AE 250 ML IV ONE (08:05)
[2022-05-01] MEDS: cefTRIAXone 1GM/50ML D5W 50 ML IV SCH (08:20)
[2022-05-01] MEDS: SODIUM CHLOR 0.9% PF (SALINE LOCK) 10ML VIAL/SYR IV SCH ×2 (08:21→21:47)
[2022-05-01] MEDS: LACTULOSE 10g/15ml SOLN 473ML PR SCH (10:00)
[2022-05-01] MEDS: HEPARIN SODIUM (PORCINE) 5000 UNITS/ML 1ML VIAL SC SCH ×2 (10:00→21:48)
[2022-05-01] MEDS ORDERED: TPN PER PHARMACY 0 ML IV SCH (10:00)
[2022-05-01] MEDS ORDERED: LACTULOSE 20Gm/30ML SOLN PO ONE (10:30)
[2022-05-01] MEDS: AZITHROMYCIN 500MG/ 250ML 250 ML IV SCH (10:33)
[2022-05-01 12:16] LABS: Albumin 2.5 g/dL (3.4-5.0); BUN/Creatinine Ratio 11.5; Magnesium 2.6 mg/dL (1.6-2.6); Phosphorus 8.6 mg/dL (2.5-4.90)
[2022-05-01 12:31] LABS: Potassium 5.8 mmol/L (3.5-5.1)
[2022-05-01] MEDS ORDERED: phytonadione 10 MG in SODIUM CHL 0.9% 50 ML IV ONE (16:15)
[2022-05-01] MEDS: ALBUMIN 25% 100 ML IV PRN (16:27)
[2022-05-01] MEDS ORDERED: DEXTROSE (50%) 50ML SYRG IV SCH (18:00)
[2022-05-01] MEDS ORDERED: EPOETIN ALFA-EPBX 10,000 UNIT/1ML VIAL SC ONE (21:00)
[2022-05-01] MEDS: LACTULOSE 20Gm/30ML SOLN PO SCH (21:46)
[2022-05-01] MEDS: AMINO ACID INFUSION IN D10W 1,000 ML IV NR (21:47)
[2022-05-02] VITALS (93 sets, daily range): BP systolic 91–135; BP diastolic 38–82
[2022-05-02] MEDS: MORPHINE SULFATE INJ 2 MG/ml SYRG IV PRN ×3 (00:12→16:49)
[2022-05-02 05:35] LABS: Albumin 2.6 g/dL (3.4-5.0); BUN/Creatinine Ratio 11.4; Magnesium 2.6 mg/dL (1.6-2.6); Potassium 4.9 mmol/L (3.5-5.1)
[2022-05-02 05:37] LABS: Bilirubin, Total 17.8 mg/dL (0.2-1.0); Phosphorus 6.2 mg/dL (2.5-4.90); Total Protein 6.5 g/dL (6.4-8.2)
[2022-05-02 05:38] LABS: Basophils # (auto) 0 10 ^3/uL (0-0.2); Basophils % (auto) 0.5 % (0.0-2.0); Hematocrit 21.8 % (41.0-53.0); Hemoglobin 7.4 g/dL (13.5-17.5); Monocytes # (auto) 1.1 10 ^3/uL (0-1.3); Red Blood Cells 2.08 10^6/uL (4.5-5.90)
[2022-05-02 05:40] LABS: Eosinophils # (auto) 0.4 10 ^3/uL (0-0.8); Eosinophils % (auto) 4.4 % (0.0-7.0); Lymphocytes # (auto) 0.7 10 ^3/uL (0.4-5.4); Lymphocytes % (auto) 8.4 % (10.0-50.0); Mean Corpuscular Hemoglobin 35.5 pg (28.0-32.0); Mean Corpuscular Hgb Conc. 33.9 g/dL (32.0-36.0); Mean Corpuscular Volume 104.5 fL (80.0-100.0); Monocytes % (auto) 12.5 % (0.0-12.0); Neutrophils # (auto) 6.6 10 ^3/uL (1.6-8.6); Neutrophils % (auto) 74.2 % (37.0-80.0); Nucleated Red Blood Cells % 0.2 %; Red Cell Distribution Width 18.4 % (11.8-14.3); White Blood Cell 8.9 10^3/uL (4.4-10.8)
[2022-05-02] MEDS: OCTREOTIDE ACETATE 100 MCG/ML VL SUBCUT SCH ×3 (06:17→21:29)
[2022-05-02] MEDS: ACCU-CHEK COMFORT CURVE STRIP VI SCH ×4 (06:17→23:41)
[2022-05-02] MEDS: MIDODRINE HCL 10 MG TAB PO SCH ×3 (06:17→21:58)
[2022-05-02] MEDS: InsuLIN REG 1unit/0.01ml Soln (100units/ml) SC SCH ×4 (06:21→23:27)
[2022-05-02] MEDS: cefTRIAXone 1GM/50ML D5W 50 ML IV SCH (08:33)
[2022-05-02] MEDS: AZITHROMYCIN 500MG/ 250ML 250 ML IV SCH (09:31)
[2022-05-02] MEDS: HEPARIN SODIUM (PORCINE) 5000 UNITS/ML 1ML VIAL SC SCH ×2 (09:33→22:00)
[2022-05-02] MEDS: LACTULOSE 20Gm/30ML SOLN PO SCH (09:33)
[2022-05-02] MEDS: SODIUM CHLOR 0.9% PF (SALINE LOCK) 10ML VIAL/SYR IV SCH ×2 (10:00→21:28)
[2022-05-02] MEDS: AMIODARONE 450mg/250ml AE 250 ML IV SCH (14:16)
[2022-05-02] MEDS ORDERED: SODIUM CHL 0.9% 1000 ML BAG XX ONE (14:30)
[2022-05-02] MEDS: ALBUMIN 25% 100 ML IV PRN ×3 (15:05→17:05)
[2022-05-02] MEDS: NOREPINEPHRINE 8 MG/250ML KIT 250 ML IV SCH (15:45)
[2022-05-02] MEDS: LACTULOSE 10g/15ml SOLN 473ML PR SCH ×2 (18:00→23:22)
[2022-05-02] MEDS: AMINO ACID INFUSION IN D10W 1,000 ML IV NR (19:49)
[2022-05-02] MEDS ORDERED: TPN PER PHARMACY IV NR ×5 (20:00)
[2022-05-02] MEDS ORDERED: EPOETIN ALFA-EPBX 10,000 UNIT/1ML VIAL SC ONE (21:00)
[2022-05-02] MEDS: PANTOPRAZOLE 40 MG/10 ML VIAL INJ IV SCH (21:58)
[2022-05-03] VITALS (68 sets, daily range): BP systolic 97–142; BP diastolic 50–89
[2022-05-03] MEDS: LORazepam 2MG/ML-1ML VIAL IV PRN (01:55)
[2022-05-03] MEDS: AMIODARONE 450mg/250ml AE 250 ML IV SCH (05:00)
[2022-05-03] MEDS: LACTULOSE 10g/15ml SOLN 473ML PR SCH (05:42)
[2022-05-03] MEDS: MIDODRINE HCL 10 MG TAB PO SCH ×3 (05:42→21:08)
[2022-05-03] MEDS: OCTREOTIDE ACETATE 100 MCG/ML VL SUBCUT SCH ×3 (05:46→21:08)
[2022-05-03] MEDS: ACCU-CHEK COMFORT CURVE STRIP VI SCH ×2 (05:46→11:21)
[2022-05-03] MEDS: InsuLIN REG 1unit/0.01ml Soln (100units/ml) SC SCH ×2 (05:49→11:40)
[2022-05-03 05:51] LABS: Basophils # (auto) 0 10 ^3/uL (0-0.2); Hematocrit 22.3 % (41.0-53.0); Hemoglobin 7.5 g/dL (13.5-17.5); Lymphocytes # (auto) 0.7 10 ^3/uL (0.4-5.4); Mean Corpuscular Hemoglobin 34.7 pg (28.0-32.0); Red Blood Cells 2.15 10^6/uL (4.5-5.90)
[2022-05-03 05:54] LABS: Basophils % (auto) 0.3 % (0.0-2.0); Eosinophils # (auto) 0.4 10 ^3/uL (0-0.8); Eosinophils % (auto) 4.1 % (0.0-7.0); Lymphocytes % (auto) 7.5 % (10.0-50.0); Mean Corpuscular Hgb Conc. 33.4 g/dL (32.0-36.0); Mean Corpuscular Volume 103.8 fL (80.0-100.0); Monocytes % (auto) 11.4 % (0.0-12.0); Neutrophils # (auto) 6.6 10 ^3/uL (1.6-8.6); Neutrophils % (auto) 76.7 % (37.0-80.0); Nucleated Red Blood Cells % 0.7 %; Red Cell Distribution Width 18.5 % (11.8-14.3); White Blood Cell 8.7 10^3/uL (4.4-10.8)
[2022-05-03 06:16] LABS: Albumin 2.9 g/dL (3.4-5.0); BUN/Creatinine Ratio 9.7; Calcium 8.2 mg/dL (8.5-10.1); Magnesium 2.2 mg/dL (1.6-2.6); Potassium 3.4 mmol/L (3.5-5.1)
[2022-05-03 06:27] LABS: Bilirubin, Total 17.5 mg/dL (0.2-1.0); Phosphorus 3.4 mg/dL (2.5-4.90); Total Protein 6.3 g/dL (6.4-8.2)
[2022-05-03] MEDS: AZITHROMYCIN 500MG/ 250ML 250 ML IV SCH (08:57)
[2022-05-03] MEDS: PANTOPRAZOLE 40 MG/10 ML VIAL INJ IV SCH ×2 (08:57→21:07)
[2022-05-03] MEDS: SODIUM CHLOR 0.9% PF (SALINE LOCK) 10ML VIAL/SYR IV SCH ×2 (08:58→21:09)
[2022-05-03] MEDS: cefTRIAXone 1GM/50ML D5W 50 ML IV SCH (08:58)
[2022-05-03] MEDS: HEPARIN SODIUM (PORCINE) 5000 UNITS/ML 1ML VIAL SC SCH ×2 (10:00→20:13)
[2022-05-03] MEDS ORDERED: AMIODARONE HCL 200 MG TAB PO ONE (11:00)
[2022-05-03] MEDS: NOREPINEPHRINE 8 MG/250ML KIT 250 ML IV SCH (11:22)
[2022-05-03] MEDS: LACTULOSE 20Gm/30ML SOLN PO SCH ×3 (11:37→23:54)
[2022-05-03] MEDS ORDERED: Nepro With Carb Steady 1 Liter Bottle GT SCH (12:45)
[2022-05-03] MEDS ORDERED: TPN PER PHARMACY IV NR ×8 (20:00)
[2022-05-03] MEDS: AMIODARONE HCL 200 MG TAB PO SCH (21:08)
[2022-05-04] VITALS (73 sets, daily range): BP systolic 86–118; BP diastolic 35–65
[2022-05-04 05:26] LABS: Albumin 2.7 g/dL (3.4-5.0); Calcium 8.5 mg/dL (8.5-10.1); Magnesium 2.5 mg/dL (1.6-2.6); Potassium 3.5 mmol/L (3.5-5.1)
[2022-05-04] MEDS: OCTREOTIDE ACETATE 100 MCG/ML VL SUBCUT SCH ×3 (05:27→21:07)
[2022-05-04] MEDS: LACTULOSE 20Gm/30ML SOLN PO SCH ×4 (05:27→23:11)
[2022-05-04] MEDS: MIDODRINE HCL 10 MG TAB PO SCH ×3 (05:28→21:06)
[2022-05-04 05:30] LABS: BUN/Creatinine Ratio 8.9; Bilirubin, Total 16.4 mg/dL (0.2-1.0); Total Protein 6.8 g/dL (6.4-8.2)
[2022-05-04 05:35] LABS: Hemoglobin 8.3 g/dL (13.5-17.5); Mean Corpuscular Hgb Conc. 33.1 g/dL (32.0-36.0)
[2022-05-04 05:37] LABS: Hematocrit 24.9 % (41.0-53.0); Mean Corpuscular Hemoglobin 34.5 pg (28.0-32.0); Red Blood Cells 2.39 10^6/uL (4.5-5.90); Red Cell Distribution Width 18.1 % (11.8-14.3); White Blood Cell 11.9 10^3/uL (4.4-10.8)
[2022-05-04 05:41] LABS: Basophils % (manual) 0 (0.0-2.0); Blast Cells 0; Metamyelocytes % 0; Promyelocytes % 0; Reactive Lymphocytes 0
[2022-05-04 06:55] LABS: Band Neutrophils % (manual) 2; Eosinophils % (manual) 1 (0-7); Lymphocytes % (manual) 9 (10.0-50.0); Monocytes % (manual) 10 (0-12); Myelocytes % 4
[2022-05-04] MEDS ORDERED: SODIUM CHL 0.9% 1000 ML BAG XX ONE (07:00)
[2022-05-04] MEDS: cefTRIAXone 1GM/50ML D5W 50 ML IV SCH (09:29)
[2022-05-04] MEDS: AZITHROMYCIN 500MG/ 250ML 250 ML IV SCH (09:29)
[2022-05-04] MEDS: PANTOPRAZOLE 40 MG/10 ML VIAL INJ IV SCH ×2 (09:29→21:06)
[2022-05-04] MEDS: SODIUM CHLOR 0.9% PF (SALINE LOCK) 10ML VIAL/SYR IV SCH ×2 (09:29→21:08)
[2022-05-04] MEDS: AMIODARONE HCL 200 MG TAB PO SCH ×2 (09:30→21:08)
[2022-05-04] MEDS: ALBUMIN 25% 100 ML IV PRN ×3 (10:27→12:15)
[2022-05-04] MEDS: HEPARIN SODIUM (PORCINE) 5000 UNITS/ML 1ML VIAL SC SCH ×2 (10:34→21:07)
[2022-05-04] MEDS: NOREPINEPHRINE 8 MG/250ML KIT 250 ML IV SCH (11:54)
[2022-05-04] MEDS ORDERED: EPOETIN ALFA-EPBX 10,000 UNIT/1ML VIAL SC ONE (21:00)
[2022-05-05] VITALS (53 sets, daily range): BP systolic 93–115; BP diastolic 40–68
[2022-05-05] MEDS: LACTULOSE 20Gm/30ML SOLN PO SCH ×4 (05:22→23:52)
[2022-05-05] MEDS: MIDODRINE HCL 10 MG TAB PO SCH ×3 (05:22→21:10)
[2022-05-05] MEDS: OCTREOTIDE ACETATE 100 MCG/ML VL SUBCUT SCH ×2 (05:22→15:36)
[2022-05-05 05:46] LABS: Basophils # (auto) 0.1 10 ^3/uL (0-0.2); Hemoglobin 7.7 g/dL (13.5-17.5); Lymphocytes # (auto) 1.3 10 ^3/uL (0.4-5.4)
[2022-05-05 05:48] LABS: Eosinophils # (auto) 0.3 10 ^3/uL (0-0.8); Eosinophils % (auto) 2.8 % (0.0-7.0); Hematocrit 23.5 % (41.0-53.0); Lymphocytes % (auto) 11.4 % (10.0-50.0); Mean Corpuscular Hemoglobin 33.9 pg (28.0-32.0); Mean Corpuscular Hgb Conc. 32.7 g/dL (32.0-36.0); Mean Corpuscular Volume 103.8 fL (80.0-100.0); Monocytes # (auto) 1.5 10 ^3/uL (0-1.3); Monocytes % (auto) 12.6 % (0.0-12.0); Neutrophils # (auto) 8.5 10 ^3/uL (1.6-8.6); Neutrophils % (auto) 72.2 % (37.0-80.0); Nucleated Red Blood Cells % 0.4 %; Red Blood Cells 2.26 10^6/uL (4.5-5.90); Red Cell Distribution Width 19.3 % (11.8-14.3); White Blood Cell 11.8 10^3/uL (4.4-10.8)
[2022-05-05 05:56] LABS: BUN/Creatinine Ratio 8.3; Calcium 8.6 mg/dL (8.5-10.1); Potassium 3.3 mmol/L (3.5-5.1)
[2022-05-05] MEDS: HEPARIN SODIUM (PORCINE) 5000 UNITS/ML 1ML VIAL SC SCH (10:00)
[2022-05-05] MEDS ORDERED: POTASSIUM CHL 20 Meq TABLET PO ONE ×2 (10:45→10:48)
[2022-05-05] MEDS: PANTOPRAZOLE 40 MG/10 ML VIAL INJ IV SCH ×2 (10:55→21:09)
[2022-05-05] MEDS: AZITHROMYCIN 500MG/ 250ML 250 ML IV SCH (10:55)
[2022-05-05] MEDS: cefTRIAXone 1GM/50ML D5W 50 ML IV SCH (10:55)
[2022-05-05] MEDS: AMIODARONE HCL 200 MG TAB PO SCH (10:56)
[2022-05-05] MEDS: SODIUM CHLOR 0.9% PF (SALINE LOCK) 10ML VIAL/SYR IV SCH ×2 (10:59→21:09)
[2022-05-05] MEDS ORDERED: PHYTONADIONE (VIT K)10 MG/ML 1ML VIAL SUBCUT ONE (14:45)
[2022-05-05] MEDS ORDERED: CLINIMIX PER PHARMACY 0 ML IV SCH (14:45)
[2022-05-05 15:14] LABS: Magnesium 2.4 mg/dL (1.6-2.6); Phosphorus 4.3 mg/dL (2.5-4.90)
[2022-05-05] MEDS: NOREPINEPHRINE 8 MG/250ML KIT 250 ML IV SCH (15:45)
[2022-05-05] MEDS ORDERED: phytonadione 10 MG in SODIUM CHL 0.9% 50 ML IV ONE (17:15)
[2022-05-05] MEDS: AMINO ACID INFUSION IN D10W 1,000 ML IV NR (19:54)
[2022-05-06] VITALS (24 sets, daily range): BP systolic 93–117; BP diastolic 47–67
[2022-05-06] MEDS ORDERED: DEXTROSE (50%) 50ML SYRG IV SCH
[2022-05-06] MEDS: ACCU-CHEK COMFORT CURVE STRIP VI SCH ×5 (00:04→23:32)
[2022-05-06] MEDS: InsuLIN REG 1unit/0.01ml Soln (100units/ml) SC SCH ×5 (00:04→23:31)
[2022-05-06 05:06] LABS: Basophils # (auto) 0.1 10 ^3/uL (0-0.2); Eosinophils # (auto) 0.5 10 ^3/uL (0-0.8); Hemoglobin 8.2 g/dL (13.5-17.5); Nucleated Red Blood Cells % 0.2 %
[2022-05-06 05:07] LABS: Basophils % (auto) 0.6 % (0.0-2.0); Eosinophils % (auto) 3.8 % (0.0-7.0); Hematocrit 24.6 % (41.0-53.0); Lymphocytes # (auto) 1.1 10 ^3/uL (0.4-5.4); Lymphocytes % (auto) 8.2 % (10.0-50.0); Mean Corpuscular Hemoglobin 34.6 pg (28.0-32.0); Mean Corpuscular Hgb Conc. 33.5 g/dL (32.0-36.0); Mean Corpuscular Volume 103.4 fL (80.0-100.0); Monocytes # (auto) 1.6 10 ^3/uL (0-1.3); Monocytes % (auto) 11.5 % (0.0-12.0); Neutrophils # (auto) 10.6 10 ^3/uL (1.6-8.6); Neutrophils % (auto) 75.9 % (37.0-80.0); Red Blood Cells 2.38 10^6/uL (4.5-5.90); Red Cell Distribution Width 19.1 % (11.8-14.3); White Blood Cell 13.9 10^3/uL (4.4-10.8)
[2022-05-06 05:17] LABS: Albumin 2.7 g/dL (3.4-5.0); BUN/Creatinine Ratio 8.7; Calcium 8.5 mg/dL (8.5-10.1); Magnesium 2.3 mg/dL (1.6-2.6); Potassium 3.3 mmol/L (3.5-5.1)
[2022-05-06 05:29] LABS: Bilirubin, Total 15.4 mg/dL (0.2-1.0); Total Protein 6.7 g/dL (6.4-8.2)
[2022-05-06] MEDS: MIDODRINE HCL 10 MG TAB PO SCH ×3 (06:18→21:46)
[2022-05-06] MEDS: LACTULOSE 20Gm/30ML SOLN PO SCH ×3 (06:18→18:25)
[2022-05-06] MEDS: SODIUM CHLOR 0.9% PF (SALINE LOCK) 10ML VIAL/SYR IV SCH ×2 (07:55→21:45)
[2022-05-06] MEDS: cefTRIAXone 1GM/50ML D5W 50 ML IV SCH (07:59)
[2022-05-06] MEDS: PANTOPRAZOLE 40 MG/10 ML VIAL INJ IV SCH ×2 (08:00→21:45)
[2022-05-06] MEDS ORDERED: POTASSIUM CHL 20 Meq TABLET PO ONE (11:45)
[2022-05-06] MEDS: NOREPINEPHRINE 8 MG/250ML KIT 250 ML IV SCH (12:04)
[2022-05-06] MEDS ORDERED: SODIUM CHL 0.9% 1000 ML BAG XX ONE (14:00)
[2022-05-06] MEDS: AMINO ACID INFUSION IN D10W 1,000 ML IV NR (20:03)
[2022-05-06] MEDS ORDERED: EPOETIN ALFA-EPBX 10,000 UNIT/1ML VIAL SC ONE (21:00)
[2022-05-06 23:35] LABS: BUN/Creatinine Ratio 8.7; Calcium 8.5 mg/dL (8.5-10.1); Magnesium 2.5 mg/dL (1.6-2.6); Potassium 3.4 mmol/L (3.5-5.1)
[2022-05-07] VITALS (86 sets, daily range): BP systolic 69–133; BP diastolic 25–78
[2022-05-07] MEDS: LACTULOSE 20Gm/30ML SOLN PO SCH ×4 (00:13→17:53)
[2022-05-07 05:04] LABS: Hematocrit 28.8 % (41.0-53.0); Hemoglobin 9.2 g/dL (13.5-17.5); Lymphocytes # (auto) 0.8 10 ^3/uL (0.4-5.4); Lymphocytes % (auto) 3.5 % (10.0-50.0); Mean Corpuscular Hgb Conc. 31.9 g/dL (32.0-36.0); Nucleated Red Blood Cells % 0.1 %
[2022-05-07 05:06] LABS: Basophils # (auto) 0.1 10 ^3/uL (0-0.2); Basophils % (auto) 0.4 % (0.0-2.0); Eosinophils # (auto) 0.3 10 ^3/uL (0-0.8); Eosinophils % (auto) 1.6 % (0.0-7.0); Mean Corpuscular Hemoglobin 34.4 pg (28.0-32.0); Mean Corpuscular Volume 107.9 fL (80.0-100.0); Monocytes # (auto) 1.1 10 ^3/uL (0-1.3); Monocytes % (auto) 4.9 % (0.0-12.0); Neutrophils # (auto) 19.4 10 ^3/uL (1.6-8.6); Neutrophils % (auto) 89.6 % (37.0-80.0); Red Blood Cells 2.67 10^6/uL (4.5-5.90); Red Cell Distribution Width 20.6 % (11.8-14.3); White Blood Cell 21.7 10^3/uL (4.4-10.8)
[2022-05-07] MEDS: MIDODRINE HCL 10 MG TAB PO SCH ×3 (05:41→22:14)
[2022-05-07] MEDS: ACCU-CHEK COMFORT CURVE STRIP VI SCH ×3 (05:41→17:53)
[2022-05-07] MEDS: InsuLIN REG 1unit/0.01ml Soln (100units/ml) SC SCH ×3 (05:41→18:18)
[2022-05-07] MEDS: cefTRIAXone 1GM/50ML D5W 50 ML IV SCH (07:44)
[2022-05-07] MEDS: SODIUM CHLOR 0.9% PF (SALINE LOCK) 10ML VIAL/SYR IV SCH ×2 (07:44→22:00)
[2022-05-07] MEDS: PANTOPRAZOLE 40 MG/10 ML VIAL INJ IV SCH ×2 (07:44→22:13)
[2022-05-07 07:48] LABS: Anion Gap 13 (5-15); Carbon Dioxide 23 mmol/L (21-32); Chloride 102 mmol/L (98-107); Potassium 3.1 mmol/L (3.5-5.1); Sodium 138 mmol/L (136-145)
[2022-05-07 07:49] LABS: Alanine Aminotransferase 37 U/L (16-61); Albumin 2.5 g/dL (3.4-5.0); Alkaline Phosphatase 102 U/L (45-117); Aspartate Aminotransferase 62 U/L (15-37); BUN/Creatinine Ratio 8.2; Bilirubin, Total 14.5 mg/dL (0.2-1.0); Blood Urea Nitrogen 62 mg/dL (7-18); Calcium 8.5 mg/dL (8.5-10.1); GFR African American 10 mL/min; GFR Non-African American 8 mL/min; Glucose 121 mg/dL (74-106); Magnesium 2.3 mg/dL (1.6-2.6); Phosphorus 3.7 mg/dL (2.5-4.90); Total Protein 7.4 g/dL (6.4-8.2)
[2022-05-07] MEDS ORDERED: PIPERACILLIN-TAZOB 2.25GM 50 ML IV ONE (10:00)
[2022-05-07] MEDS ORDERED: DexAMETHasone SOD PHOS 10MG/1ML VIAL INJ IV ONE (10:00)
[2022-05-07] MEDS: POTASSIUM CHL 20MEQ/100ML 100 ML IV SCH ×2 (11:36→13:09)
[2022-05-07] MEDS: NOREPINEPHRINE 8 MG/250ML KIT 250 ML IV SCH (12:13)
[2022-05-07] MEDS ORDERED: AMIODARONE HCL 200 MG TAB PO ONE (15:45)
[2022-05-07] MEDS: PIPERACILLIN-TAZOB 2.25GM 50 ML IV SCH (17:53)
[2022-05-07] MEDS ORDERED: AMINO ACID INFUSION IN D10W 1,000 ML IV NR (20:00)
[2022-05-07] MEDS: AMIODARONE HCL 200 MG TAB PO SCH (22:14)
[2022-05-08] VITALS (56 sets, daily range): BP systolic 47–132; BP diastolic 24–87
[2022-05-08] MEDS: PIPERACILLIN-TAZOB 2.25GM 50 ML IV SCH ×3 (02:00→12:10)
[2022-05-08] MEDS: LORazepam 2MG/ML-1ML VIAL IV PRN (03:15)
[2022-05-08 04:53] LABS: Basophils # (auto) 0 10 ^3/uL (0-0.2); Eosinophils # (auto) 0 10 ^3/uL (0-0.8); Hemoglobin 8.6 g/dL (13.5-17.5); Lymphocytes # (auto) 0.6 10 ^3/uL (0.4-5.4); Lymphocytes % (auto) 3.2 % (10.0-50.0); White Blood Cell 17.3 10^3/uL (4.4-10.8)
[2022-05-08 04:59] LABS: Basophils % (auto) 0.2 % (0.0-2.0); Hematocrit 26.9 % (41.0-53.0); Mean Corpuscular Hemoglobin 33.9 pg (28.0-32.0); Monocytes # (auto) 0.9 10 ^3/uL (0-1.3); Monocytes % (auto) 5.3 % (0.0-12.0); Neutrophils # (auto) 15.8 10 ^3/uL (1.6-8.6); Neutrophils % (auto) 91.3 % (37.0-80.0); Red Blood Cells 2.54 10^6/uL (4.5-5.90); Red Cell Distribution Width 19.9 % (11.8-14.3)
[2022-05-08 05:11] LABS: Potassium 3.7 mmol/L (3.5-5.1)
[2022-05-08 05:20] LABS: Albumin 2.4 g/dL (3.4-5.0); BUN/Creatinine Ratio 9.1; Bilirubin, Total 13.5 mg/dL (0.2-1.0); Calcium 8.3 mg/dL (8.5-10.1); Magnesium 2.1 mg/dL (1.6-2.6); Phosphorus 6.5 mg/dL (2.5-4.90); Total Protein 6.8 g/dL (6.4-8.2)
[2022-05-08] MEDS: LACTULOSE 20Gm/30ML SOLN PO SCH ×2 (05:36)
[2022-05-08] MEDS: MIDODRINE HCL 10 MG TAB PO SCH ×2 (05:36→12:10)
[2022-05-08] MEDS: InsuLIN REG 1unit/0.01ml Soln (100units/ml) SC SCH ×3 (05:36→12:00)
[2022-05-08] MEDS: ACCU-CHEK COMFORT CURVE STRIP VI SCH ×3 (05:37→12:00)
[2022-05-08] MEDS: ALBUMIN 25% 100 ML IV PRN ×2 (06:40→08:21)
[2022-05-08] MEDS ORDERED: SODIUM CHL 0.9% 1000 ML BAG XX ONE (07:00)
[2022-05-08] MEDS: MORPHINE SULFATE INJ 2 MG/ml SYRG IV PRN (07:37)
[2022-05-08] MEDS: SODIUM CHLOR 0.9% PF (SALINE LOCK) 10ML VIAL/SYR IV SCH (07:49)
[2022-05-08] MEDS: AMIODARONE HCL 200 MG TAB PO SCH (09:55)
[2022-05-08] MEDS: PANTOPRAZOLE 40 MG/10 ML VIAL INJ IV SCH (09:55)
[2022-05-08] MEDS: NOREPINEPHRINE 8 MG/250ML KIT 250 ML IV SCH (09:56)
[2022-05-08] MEDS ORDERED: LACTULOSE 20Gm/30ML SOLN PO SCH ×2 (10:00→22:00)
[2022-05-08] MEDS ORDERED: DexAMETHasone SOD PHOS 10MG/1ML VIAL INJ IV SCH (10:00)
[2022-05-08] MEDS ORDERED: DOPamine 1600MCG/ML D5W 250 ML IV PRN (10:30)
[2022-05-08] MEDS ORDERED: MORPHINE SULFATE INJ 2 MG/ml SYRG IV PRN (12:15)
[2022-05-08] MEDS ORDERED: LORazepam 2MG/ML-1ML VIAL IV PRN (12:15)
[2022-05-08] MEDS ORDERED: EPOETIN ALFA-EPBX 10,000 UNIT/1ML VIAL SC ONE (21:00)
== END 2022-05-08 14:17 | DRG 720 ==
LOC: EDBD 08:41 → ER 08:41 → TELE 11:26 → TELE-WESTW 21:25 → DOU IN ICU 04-28 15:15 → ICU CENTRL 04-28 17:16
PROVIDERS: ADMIT Registered Nurse; ATTEND Internal Medicine Pulmonary Disease
PROC: 5A1D70Z Performance of Urinary Filtration, Intermittent, Less than 6 Hours Per Day (ICD-10-PCS; 2022-04-24)
PROC: 0W9G30Z Drainage of Peritoneal Cavity with Drainage Device, Percutaneous Approach (ICD-10-PCS; principal; 2022-04-25)
PROC: 5A1D70Z Performance of Urinary Filtration, Intermittent, Less than 6 Hours Per Day (ICD-10-PCS; 2022-04-26)
PROC: 5A09557 Assistance with Respiratory Ventilation, Greater than 96 Consecutive Hours, Continuous Positive Airway Pressure (ICD-10-PCS; 2022-04-28)
PROC: 05HC33Z Insertion of Infusion Device into Left Basilic Vein, Percutaneous Approach (ICD-10-PCS; 2022-04-28)
PROC: B54NZZA Ultrasonography of Left Upper Extremity Veins, Guidance (ICD-10-PCS; 2022-04-28)
PROC: 5A1D70Z Performance of Urinary Filtration, Intermittent, Less than 6 Hours Per Day (ICD-10-PCS; 2022-04-28)
PROC: 5A1D70Z Performance of Urinary Filtration, Intermittent, Less than 6 Hours Per Day (ICD-10-PCS; 2022-04-29)
PROC: 02HV33Z Insertion of Infusion Device into Superior Vena Cava, Percutaneous Approach (ICD-10-PCS; 2022-04-30)
PROC: 30233N1 Transfusion of Nonautologous Red Blood Cells into Peripheral Vein, Percutaneous Approach (ICD-10-PCS; 2022-05-01)
PROC: 5A1D70Z Performance of Urinary Filtration, Intermittent, Less than 6 Hours Per Day (ICD-10-PCS; 2022-05-01)
PROC: 5A1D70Z Performance of Urinary Filtration, Intermittent, Less than 6 Hours Per Day (ICD-10-PCS; 2022-05-02)
PROC: 5A1D70Z Performance of Urinary Filtration, Intermittent, Less than 6 Hours Per Day (ICD-10-PCS; 2022-05-04)
PROC: 5A1D70Z Performance of Urinary Filtration, Intermittent, Less than 6 Hours Per Day (ICD-10-PCS; 2022-05-07)
PROC: 5A1D70Z Performance of Urinary Filtration, Intermittent, Less than 6 Hours Per Day (ICD-10-PCS; 2022-05-08)
DX: A41.9 Sepsis, unspecified organism (principal); N17.0 Acute kidney failure with tubular necrosis; J96.21 Acute and chronic respiratory failure with hypoxia; R65.21 Severe sepsis with septic shock; J12.82 Pneumonia due to coronavirus disease 2019; I47.2 Ventricular tachycardia; U07.1 COVID-19; N18.6 End stage renal disease; D62 Acute posthemorrhagic anemia; E88.09 Other disorders of plasma-protein metabolism, not elsewhere classified; I50.33 Acute on chronic diastolic (congestive) heart failure; D69.6 Thrombocytopenia, unspecified; D63.1 Anemia in chronic kidney disease; K70.31 Alcoholic cirrhosis of liver with ascites; I27.20 Pulmonary hypertension, unspecified; I13.2 Hypertensive heart and chronic kidney disease with heart failure and with stage 5 chronic kidney disease, or end stage renal disease; K72.90 Hepatic failure, unspecified without coma; K76.6 Portal hypertension; E11.22 Type 2 diabetes mellitus with diabetic chronic kidney disease; E66.9 Obesity, unspecified; E87.6 Hypokalemia; E78.5 Hyperlipidemia, unspecified; F17.210 Nicotine dependence, cigarettes, uncomplicated; Z99.2 Dependence on renal dialysis; Z51.5 Encounter for palliative care; Z82.49 Family history of ischemic heart disease and other diseases of the circulatory system; Z83.3 Family history of diabetes mellitus
CPT/HCPCS: 36415; 36569; 36600; 71045; 74176; 76705; 76942; 80048; 80053; 80069; 80307; 80320; 81001; 82140; 82306; 82805; 82962; 83615; 83735; 83880; 83970; 83986; 84100; 84478; 84484; 85007; 85025; 85027; 85610; 85730; 86850; 86900; 86901; 86920; 87040; 87081; 87205; 89051; 90935; 93005; 93970; 94660; 99291; A4565; C9113; G0378; J0696; J1100; J1642; J1815; J2543; J3430; J3480; J7060; J7131; P9047